=== PATIENT | male | born 1985 | race African-American/Black ===

== ENCOUNTER 2020-11-27 16:21 | Inpatient (IN) | payer OTHER, SELFPAY ==
[2020-11-27 16:45] VITALS: BP 137/88; PULSE 120; RESP 32; TEMP 38.3; O2SAT 92; BMI 27.3
--- NOTE | 2020-11-27 18:01 | XRR_ITS ---
PROCEDURE INFORMATION: Exam: XR Chest Exam date and time: 11/27/2020 6:01 PM Age: 35 years old Clinical indication: Dyspnea; Additional info: Tachypnea, covid TECHNIQUE: Imaging protocol: XR of the chest. Views: 1 view. COMPARISON: No relevant prior studies available. FINDINGS: Lungs: Patchy scattered peripheral airspace opacities with irregular margins bilaterally. Decreased lung volumes. Prominent pulmonary interstitial changes. Pleural spaces: Unremarkable. No pleural effusion. No pneumothorax. Heart/Mediastinum: Unremarkable. No cardiomegaly. Bones/joints: Unremarkable. XR/XR chest 1V portable [id number] IMPRESSION: Patchy nonspecific airspace disease in both lungs, but the features are consistent with COVID-19 pneumonia.
--- NOTE | 2020-11-27 18:38 | W.ED.COVID ---
Documented by User: MIRA Garcia 11/27/20 20:26 HPI - COVID General: Chief Complaint: COVID symptoms Stated Complaint: Sob, Low 02, covid + Time Seen by Provider: 11/27/20 18:20 Triage information: Has fever, cough or shortness of breath. No known COVID + exposure last 14 days History of Present Illness: HPI Narrative: Patient is been ill since Sunday. Patient reports shortness of breath starting on Sunday. Patient was tested at [facility] on and was diagnosed with COVID-19. Patient comes in as an tachypneic, appears in mild to moderate distress. Patient appears in no pain. Patient reports occasional episodes of nausea and vomiting and diarrhea and notes blood in it. Skin is warm and dry. Patient reports poor oral intake. MD complaint: known COVID positive COVID 19 common symptoms: positive dyspnea, nausea, vomiting and diarrhea COVID Results: No Data to Display Review of Systems General: Reports: 10 or more systems reviewed and unremarkable except in HPI and below Resp: Reports: dyspnea GI: Reports: abdominal pain, nausea, vomiting and diarrhea Physical Exam Const: COMMON NORMALS: no acute distress and patient oriented x3 GENERAL APPEARANCE: cooperative HENMT: COMMON NORMALS: normocephalic and Normal external nose present HEAD & SCALP: normal to inspection and normocephalic NOSE: Normal external nose present MOUTH: Normal oral and palatal mucosa present Eye: GENERAL EYE: appearance normal, both eyes and all related structures Neck/C-Spine: COMMON NORMALS: full ROM Lymph: LYMPHATIC: no lymphadenopathy noted Chest: COMMONS NORMALS: normal inspection of the chest Resp: EFFORT & INSPECTION: Yes able to speak in complete sentences and Yes tachypneic AUSCULTATION: diminished lung sounds Cardio: COMMON NORMALS: regular rate and regular rhythm RATE: regular rate RHYTHM: regular rhythm GI: COMMON NORMALS: non-tender : COMMON NORMALS: Yes no CVA tenderness BLADDER/KIDNEY EXAM: Yes no CVA tenderness Back/Pelvis: COMMON NORMALS: no CVA tenderness and thoracic and lumbar spine normal to inspection Extremity: COMMON NORMALS: normal to inspection Neuro: COMMON NORMALS: patient oriented x3 and moves all extremities Psych: COMMON NORMALS: mental status grossly normal and cooperative Skin: COMMON NORMALS: no rashes or lesions noted GENERAL SKIN EXAM: no rashes or lesions noted Course ED course: 2009, reviewed x-ray with Dr. Gomez, he feels the patient due to his significant hypoxia needs to be admitted to the hospital for further treatment and evaluation. I reviewed this with patient who agreed to plan. Patient is pulse ox she had has improved since being placed on 4 L nasal cannula, the patient remains tachypneic. Vital Signs: Vital signs: Vital Signs Temperature 101.0 F H 11/27/20 16:45 Pulse Rate 114 H 11/27/20 19:45 Respiratory Rate 22 H 11/27/20 19:45 Blood Pressure 137/88 11/27/20 16:45 Pulse Oximetry 100 11/27/20 19:45 MDM - COVID MDM Narrative: Medical decision making narrative: Patient comes in today with increasing shortness of breath. Patient was unable to catch his breath anymore. Patient reports some decreased appetite and occasional nausea vomiting and diarrhea. Patient notes that there is some streaking of blood in both his vomit and diarrhea. On exam abdomen soft nontender. Bowel sounds are present. Lungs are decreased throughout. Patient is tachypneic. Pulses 120. Temperature is 101. On my exam patient's oxygen saturation was 84% on room air. Patient appeared in mild to moderate distress. Differential diagnosis includes not limited to pneumonia, COVID-19, PE. D-dimer was normal. Chest x-ray noted significant pneumonia throughout all taveras. PO2 on ABG was 60's on 40% oxygen. Reviewed this with Dr. Gomez, attending ER physician, and he felt the patient would need admission due to his persistent and worsening symptoms over the last 4 days. Patient was consulted and agreed to plan. Patient needs admission for intensive treatment of his pneumonia with antivirals, oxygen therapy, and monitoring for respiratory failure. Lab Data: Labs: Lab Results 11/27/20 11/27/20 11/27/20 Range/Units 19:50 19:50 19:50 WBC 3.6 L (4.0-10.0) 10^3/ uL RBC 5.39 H (4.1-5.3) 10^6/u L Hgb 15.7 (11.7-16.6) g/dL Hct 46.2 (42.0-52.0) % MCV 85.7 (80-94) fL MCH 29.1 (28.0-34.0) pg MCHC 34.0 (30.0-36.0) g/dL RDW 11.8 L (12.1-15.1) % Plt Count 197 (130-400) 10^3/c mm MPV 9.6 (7.4-10.4) fL Neut % (Auto) 70.4 % Lymph % (Auto) 20.2 % [place] % (Auto) 8.0 % Eos % (Auto) 0.0 % Baso % (Auto) 0.0 % Neut # (Auto) 2.54 (1.8-7.7) 10^3/u L Lymph # (Auto) 0.7 L (0.8-4.8) 10^3/u L [place] # (Auto) 0.3 (0.2-0.9) 10^3/u L Eos # (Auto) 0.0 (0.0-0.8) 10^3/u L Baso # (Auto) 0.0 (0.0-0.1) 10^3/u L Nucleated RBC % (a uto) 0 % Nucleated RBCs # 0.0 /100WBC PT 13.30 (12.1-14.9) SECO NDS INR 0.98 (0.8-1.2) APTT 34.8 (23.9-36.7) SECO NDS D-Dimer 0.39 (0-0.59) ug/mIFE U Specimen Type Sample Site ABG pH (7.35-7.45) ABG pCO2 (35-45) mmHg ABG pO2 (80.0-100.0) mmH g ABG HCO3 (22-26) mmol/L ABG Base Excess (-2.0-2.0) mmol/ L Arvind Test Hematocrit (42-52) % O2 Delivery Device O2 Liters/Min % Shell Core And Molding Supervisor ID Sodium 137 (136-145) mmol/L Potassium 3.8 (3.5-5.1) mmol/L Chloride 100 (98-107) mmol/L Carbon Dioxide 25 (22-29) mmol/L Anion Gap 15.8 (5-19) BUN 6 (6-20) mg/dL Creatinine 0.8 (0.7-1.2) mg/dL GFR Calculation 133.9 H (90-130) mL/min Glucose 98 (65-115) mg/dL Calculated Osmolal ity 282 L (285-295) mOsm/k g Lactic Acid (0.5-2.2) mmol/L Calcium 7.9 L (8.5-10.5) mg/dL Total Bilirubin 0.4 (0.15-1.2) mg/dL AST 73 H (0-40) U/L ALT 112 H (0-41) U/L Alkaline Phosphata se 36 L (40-130) IU/L Creatine Kinase 1469 H* (39-308) U/L Troponin T Gen 5 n g/L (0-15) ng/L Troponin T Baselin e (0-15) ng/L C-Reactive Protein 68.2 H (0.0-4.9) mg/L Total Protein 6.9 (6.6-8.7) g/dL Albumin 3.8 (3.5-5.2) g/dL Globulin 3.1 (1.3-4.6) g/dL Procalcitonin 0.17 (0-0.5) ng/mL 11/27/20 11/27/20 11/27/20 Range/Units 19:50 19:50 19:50 WBC (4.0-10.0) 10^3/ uL RBC (4.1-5.3) 10^6/u L Hgb (11.7-16.6) g/dL Hct (42.0-52.0) % MCV (80-94) fL MCH (28.0-34.0) pg MCHC (30.0-36.0) g/dL RDW (12.1-15.1) % Plt Count (130-400) 10^3/c mm MPV (7.4-10.4) fL Neut % (Auto) % Lymph % (Auto) % [place] % (Auto) % Eos % (Auto) % Baso % (Auto) % Neut # (Auto) (1.8-7.7) 10^3/u L Lymph # (Auto) (0.8-4.8) 10^3/u L [place] # (Auto) (0.2-0.9) 10^3/u L Eos # (Auto) (0.0-0.8) 10^3/u L Baso # (Auto) (0.0-0.1) 10^3/u L Nucleated RBC % (a uto) % Nucleated RBCs # /100WBC PT (12.1-14.9) SECO NDS INR (0.8-1.2) APTT (23.9-36.7) SECO NDS D-Dimer (0-0.59) ug/mIFE U Specimen Type Arterial Sample Site Brachial, left ABG pH 7.45 (7.35-7.45) ABG pCO2 33.8 L (35-45) mmHg ABG pO2 67.6 L (80.0-100.0) mmH g ABG HCO3 23.2 (22-26) mmol/L ABG Base Excess -0.2 (-2.0-2.0) mmol/ L Arvind Test Pos Hematocrit 49.5 (42-52) % O2 Delivery Device Nc O2 Liters/Min 4.0 % Shell Core And Molding Supervisor ID [email or web address] Sodium (136-145) mmol/L Potassium (3.5-5.1) mmol/L Chloride (98-107) mmol/L Carbon Dioxide (22-29) mmol/L Anion Gap (5-19) BUN (6-20) mg/dL Creatinine (0.7-1.2) mg/dL GFR Calculation (90-130) mL/min Glucose (65-115) mg/dL Calculated Osmolal ity (285-295) mOsm/k g Lactic Acid 1.1 (0.5-2.2) mmol/L Calcium (8.5-10.5) mg/dL Total Bilirubin (0.15-1.2) mg/dL AST (0-40) U/L ALT (0-41) U/L Alkaline Phosphata se (40-130) IU/L Creatine Kinase (39-308) U/L Troponin T Gen 5 n g/L 7 (0-15) ng/L Troponin T Baselin e (0-15) ng/L C-Reactive Protein (0.0-4.9) mg/L Total Protein (6.6-8.7) g/dL Albumin (3.5-5.2) g/dL Globulin (1.3-4.6) g/dL Procalcitonin (0-0.5) ng/mL 07/31/21 Range/Units 22:24 WBC (4.0-10.0) 10^3/ uL RBC (4.1-5.3) 10^6/u L Hgb (11.7-16.6) g/dL Hct (42.0-52.0) % MCV (80-94) fL MCH (28.0-34.0) pg MCHC (30.0-36.0) g/dL RDW (12.1-15.1) % Plt Count (130-400) 10^3/c mm MPV (7.4-10.4) fL Neut % (Auto) % Lymph % (Auto) % [place] % (Auto) % Eos % (Auto) % Baso % (Auto) % Neut # (Auto) (1.8-7.7) 10^3/u L Lymph # (Auto) (0.8-4.8) 10^3/u L [place] # (Auto) (0.2-0.9) 10^3/u L Eos # (Auto) (0.0-0.8) 10^3/u L Baso # (Auto) (0.0-0.1) 10^3/u L Nucleated RBC % (a uto) % Nucleated RBCs # /100WBC PT (12.1-14.9) SECO NDS INR (0.8-1.2) APTT (23.9-36.7) SECO NDS D-Dimer (0-0.59) ug/mIFE U Specimen Type Sample Site ABG pH (7.35-7.45) ABG pCO2 (35-45) mmHg ABG pO2 (80.0-100.0) mmH g ABG HCO3 (22-26) mmol/L ABG Base Excess (-2.0-2.0) mmol/ L Arvind Test Hematocrit (42-52) % O2 Delivery Device O2 Liters/Min % Shell Core And Molding Supervisor ID Sodium (136-145) mmol/L Potassium (3.5-5.1) mmol/L Chloride (98-107) mmol/L Carbon Dioxide (22-29) mmol/L Anion Gap (5-19) BUN (6-20) mg/dL Creatinine (0.7-1.2) mg/dL GFR Calculation (90-130) mL/min Glucose (65-115) mg/dL Calculated Osmolal ity (285-295) mOsm/k g Lactic Acid (0.5-2.2) mmol/L Calcium (8.5-10.5) mg/dL Total Bilirubin (0.15-1.2) mg/dL AST (0-40) U/L ALT (0-41) U/L Alkaline Phosphata se (40-130) IU/L Creatine Kinase (39-308) U/L Troponin T Gen 5 n g/L (0-15) ng/L Troponin T Baselin e 7 (0-15) ng/L C-Reactive Protein (0.0-4.9) mg/L Total Protein (6.6-8.7) g/dL Albumin (3.5-5.2) g/dL Globulin (1.3-4.6) g/dL Procalcitonin (0-0.5) ng/mL COVID Results: No Data to Display Discharge Plan Discharge Patient Disposition: Admitted As Inpatient Admit Provider: Felicita Franco Clinical Impression: Acute respiratory failure with hypoxia, Pneumonia due to COVID-19 virus Condition: Stable Coding Level of Care Code ED Sprinkler Fitter Apprentice for Chg Fwd Exam Comprehensive Documented by User: Mike Gomez DO 11/28/20 00:14 HPI - COVID General: Chief Complaint: COVID symptoms Stated Complaint: Sob, Low 02, covid + Time Seen by Provider: 11/27/20 18:20 COVID Results: No Data to Display Course Consultations: Consultation #1: sheridan Vital Signs: Vital signs: Vital Signs Temperature 101.0 F H 11/27/20 16:45 Pulse Rate 114 H 11/27/20 19:45 Respiratory Rate 22 H 11/27/20 19:45 Blood Pressure 137/88 11/27/20 16:45 Pulse Oximetry 100 11/27/20 19:45 MDM - COVID MDM Narrative: Medical decision making narrative: 35-year-old male presents short of breath. He is positive for COVID-19. He has bilateral pneumonitis on chest x-ray that is significant. He is oxygen dependent on 4 L. His pneumonitic load is significant on chest x-ray. He will be admitted for antivirals and dexamethasone and oxygen support. He was originally seen by MIRA Bennett. I agree with his history, evaluation, and treatment. Lab Data: Labs: Lab Results 11/27/20 11/27/20 11/27/20 Range/Units 19:50 19:50 19:50 WBC 3.6 L (4.0-10.0) 10^3/ uL RBC 5.39 H (4.1-5.3) 10^6/u L Hgb 15.7 (11.7-16.6) g/dL Hct 46.2 (42.0-52.0) % MCV 85.7 (80-94) fL MCH 29.1 (28.0-34.0) pg MCHC 34.0 (30.0-36.0) g/dL RDW 11.8 L (12.1-15.1) % Plt Count 197 (130-400) 10^3/c mm MPV 9.6 (7.4-10.4) fL Neut % (Auto) 70.4 % Lymph % (Auto) 20.2 % [place] % (Auto) 8.0 % Eos % (Auto) 0.0 % Baso % (Auto) 0.0 % Neut # (Auto) 2.54 (1.8-7.7) 10^3/u L Lymph # (Auto) 0.7 L (0.8-4.8) 10^3/u L [place] # (Auto) 0.3 (0.2-0.9) 10^3/u L Eos # (Auto) 0.0 (0.0-0.8) 10^3/u L Baso # (Auto) 0.0 (0.0-0.1) 10^3/u L Nucleated RBC % (a uto) 0 % Nucleated RBCs # 0.0 /100WBC PT 13.30 (12.1-14.9) SECO NDS INR 0.98 (0.8-1.2) APTT 34.8 (23.9-36.7) SECO NDS D-Dimer 0.39 (0-0.59) ug/mIFE U Specimen Type Sample Site ABG pH (7.35-7.45) ABG pCO2 (35-45) mmHg ABG pO2 (80.0-100.0) mmH g ABG HCO3 (22-26) mmol/L ABG Base Excess (-2.0-2.0) mmol/ L Arvind Test Hematocrit (42-52) % O2 Delivery Device O2 Liters/Min % Shell Core And Molding Supervisor ID Sodium 137 (136-145) mmol/L Potassium 3.8 (3.5-5.1) mmol/L Chloride 100 (98-107) mmol/L Carbon Dioxide 25 (22-29) mmol/L Anion Gap 15.8 (5-19) BUN 6 (6-20) mg/dL Creatinine 0.8 (0.7-1.2) mg/dL GFR Calculation 133.9 H (90-130) mL/min Glucose 98 (65-115) mg/dL Calculated Osmolal ity 282 L (285-295) mOsm/k g Lactic Acid (0.5-2.2) mmol/L Calcium 7.9 L (8.5-10.5) mg/dL Total Bilirubin 0.4 (0.15-1.2) mg/dL AST 73 H (0-40) U/L ALT 112 H (0-41) U/L Alkaline Phosphata se 36 L (40-130) IU/L Creatine Kinase 1469 H* (39-308) U/L Troponin T Gen 5 n g/L (0-15) ng/L Troponin T Baselin e (0-15) ng/L C-Reactive Protein 68.2 H (0.0-4.9) mg/L Total Protein 6.9 (6.6-8.7) g/dL Albumin 3.8 (3.5-5.2) g/dL Globulin 3.1 (1.3-4.6) g/dL Procalcitonin 0.17 (0-0.5) ng/mL 11/27/20 11/27/20 11/27/20 Range/Units 19:50 19:50 19:50 WBC (4.0-10.0) 10^3/ uL RBC (4.1-5.3) 10^6/u L Hgb (11.7-16.6) g/dL Hct (42.0-52.0) % MCV (80-94) fL MCH (28.0-34.0) pg MCHC (30.0-36.0) g/dL RDW (12.1-15.1) % Plt Count (130-400) 10^3/c mm MPV (7.4-10.4) fL Neut % (Auto) % Lymph % (Auto) % [place] % (Auto) % Eos % (Auto) % Baso % (Auto) % Neut # (Auto) (1.8-7.7) 10^3/u L Lymph # (Auto) (0.8-4.8) 10^3/u L [place] # (Auto) (0.2-0.9) 10^3/u L Eos # (Auto) (0.0-0.8) 10^3/u L Baso # (Auto) (0.0-0.1) 10^3/u L Nucleated RBC % (a uto) % Nucleated RBCs # /100WBC PT (12.1-14.9) SECO NDS INR (0.8-1.2) APTT (23.9-36.7) SECO NDS D-Dimer (0-0.59) ug/mIFE U Specimen Type Arterial Sample Site Brachial, left ABG pH 7.45 (7.35-7.45) ABG pCO2 33.8 L (35-45) mmHg ABG pO2 67.6 L (80.0-100.0) mmH g ABG HCO3 23.2 (22-26) mmol/L ABG Base Excess -0.2 (-2.0-2.0) mmol/ L Arvind Test Pos Hematocrit 49.5 (42-52) % O2 Delivery Device Nc O2 Liters/Min 4.0 % Shell Core And Molding Supervisor ID [email or web address] Sodium (136-145) mmol/L Potassium (3.5-5.1) mmol/L Chloride (98-107) mmol/L Carbon Dioxide (22-29) mmol/L Anion Gap (5-19) BUN (6-20) mg/dL Creatinine (0.7-1.2) mg/dL GFR Calculation (90-130) mL/min Glucose (65-115) mg/dL Calculated Osmolal ity (285-295) mOsm/k g Lactic Acid 1.1 (0.5-2.2) mmol/L Calcium (8.5-10.5) mg/dL Total Bilirubin (0.15-1.2) mg/dL AST (0-40) U/L ALT (0-41) U/L Alkaline Phosphata se (40-130) IU/L Creatine Kinase (39-308) U/L Troponin T Gen 5 n g/L 7 (0-15) ng/L Troponin T Baselin e (0-15) ng/L C-Reactive Protein (0.0-4.9) mg/L Total Protein (6.6-8.7) g/dL Albumin (3.5-5.2) g/dL Globulin (1.3-4.6) g/dL Procalcitonin (0-0.5) ng/mL 11/27/20 Range/Units 22:24 WBC (4.0-10.0) 10^3/ uL RBC (4.1-5.3) 10^6/u L Hgb (11.7-16.6) g/dL Hct (42.0-52.0) % MCV (80-94) fL MCH (28.0-34.0) pg MCHC (30.0-36.0) g/dL RDW (12.1-15.1) % Plt Count (130-400) 10^3/c mm MPV (7.4-10.4) fL Neut % (Auto) % Lymph % (Auto) % [place] % (Auto) % Eos % (Auto) % Baso % (Auto) % Neut # (Auto) (1.8-7.7) 10^3/u L Lymph # (Auto) (0.8-4.8) 10^3/u L [place] # (Auto) (0.2-0.9) 10^3/u L Eos # (Auto) (0.0-0.8) 10^3/u L Baso # (Auto) (0.0-0.1) 10^3/u L Nucleated RBC % (a uto) % Nucleated RBCs # /100WBC PT (12.1-14.9) SECO NDS INR (0.8-1.2) APTT (23.9-36.7) SECO NDS D-Dimer (0-0.59) ug/mIFE U Specimen Type Sample Site ABG pH (7.35-7.45) ABG pCO2 (35-45) mmHg ABG pO2 (80.0-100.0) mmH g ABG HCO3 (22-26) mmol/L ABG Base Excess (-2.0-2.0) mmol/ L Arvind Test Hematocrit (42-52) % O2 Delivery Device O2 Liters/Min % Shell Core And Molding Supervisor ID Sodium (136-145) mmol/L Potassium (3.5-5.1) mmol/L Chloride (98-107) mmol/L Carbon Dioxide (22-29) mmol/L Anion Gap (5-19) BUN (6-20) mg/dL Creatinine (0.7-1.2) mg/dL GFR Calculation (90-130) mL/min Glucose (65-115) mg/dL Calculated Osmolal ity (285-295) mOsm/k g Lactic Acid (0.5-2.2) mmol/L Calcium (8.5-10.5) mg/dL Total Bilirubin (0.15-1.2) mg/dL AST (0-40) U/L ALT (0-41) U/L Alkaline Phosphata se (40-130) IU/L Creatine Kinase (39-308) U/L Troponin T Gen 5 n g/L (0-15) ng/L Troponin T Baselin e 7 (0-15) ng/L C-Reactive Protein (0.0-4.9) mg/L Total Protein (6.6-8.7) g/dL Albumin (3.5-5.2) g/dL Globulin (1.3-4.6) g/dL Procalcitonin (0-0.5) ng/mL COVID Results: No Data to Display Discharge Plan Discharge Patient Disposition: Admitted As Inpatient Admit Provider: Felicita Franco Clinical Impression: Acute respiratory failure with hypoxia, Pneumonia due to COVID-19 virus Condition: Stable Coding Level of Care Code ED Sprinkler Fitter Apprentice for g Fwd Exam Comprehensive
[2020-11-27 18:50] VITALS: O2SAT 96
[2020-11-27 19:45] VITALS: PULSE 114; RESP 22; O2SAT 100
[2020-11-27] MEDS: albuterol 8 gm MDI 2 PUFF INHALATION (19:45)
[2020-11-27 20:02] LABS: Hematocrit 46.2 % (42.0-52.0); Hemoglobin 15.7 g/dL (11.7-16.6); Lymphocytes # 0.7 10^3/uL (0.8-4.8); Lymphocytes % 20.2 %; Mean Corpuscular Hemoglobin 29.1 pg (28.0-34.0); Mean Corpuscular Volume 85.7 fL (80-94); Mean Platelet Volume 9.6 fL (7.4-10.4); Monocytes # 0.3 10^3/uL (0.2-0.9); Neutrophils # 2.54 10^3/uL (1.8-7.7); Neutrophils % 70.4 %; Nucleated Red Blood Cells % 0 %; Platelet Count 197 10^3/cmm (130-400); Red Blood Count 5.39 10^6/uL (4.1-5.3); Red Cell Distribution Width 11.8 % (12.1-15.1); White Blood Count 3.6 10^3/uL (4.0-10.0)
[2020-11-27 20:09] LABS: ABG PCO2 33.8 mmHg (35-45); ABG PH Result 7.45 (7.35-7.45); Arterial Blood Gas Hematocrit 49.5 % (42-52); Base Excess ABG -0.2 mmol/L (-2.0-2.0); Blood Gas Allen Test Pos; Blood Gas Sample Site Brachial, left; Blood Gas Sample Type Arterial; HCO3 ABG 23.2 mmol/L (22-26); Oxygen Device NC; PO2 ABG 67.6 mmHg (80.0-100.0)
[2020-11-27 20:17] LABS: INR 0.98 (0.8-1.2)
[2020-11-27 20:18] LABS: Partial Thromboplastin Time 34.8 SECONDS (23.9-36.7)
[2020-11-27 20:20] LABS: D Dimer 0.39 ug/mIFEU (0-0.59)
[2020-11-27 20:23] LABS: Alanine Aminotransferase 112 U/L (0-41); Albumin Level 3.8 g/dL (3.5-5.2); Alkaline Phosphatase 36 IU/L (40-130); Aspartate Amino Transferase 73 U/L (0-40); Blood Urea Nitrogen 6 mg/dL (6-20); C Reactive Protein 68.2 mg/L (0.0-4.9); Calcium 7.9 mg/dL (8.5-10.5); Carbon Dioxide 25 mmol/L (22-29); Chloride 100 mmol/L (98-107); Globulin 3.1 g/dL (1.3-4.6); Glomerular Filtration Rate 133.9 mL/min (90-130); Glucose 98 mg/dL (65-115); Osmolality Calculated 282 mOsm/kg (285-295); Sodium 137 mmol/L (136-145); Total Bilirubin 0.4 mg/dL (0.15-1.2); Total Protein 6.9 g/dL (6.6-8.7)
[2020-11-27 20:24] LABS: Lactic Sepsis W/Reflex 1.1 mmol/L (0.5-2.2)
[2020-11-27 20:25] LABS: Anion Gap 15.8 (5-19); Potassium 3.8 mmol/L (3.5-5.1)
[2020-11-27 20:28] LABS: Creatine Phosphokinase 1469 U/L (39-308)
[2020-11-27 20:30] LABS: Procalcitonin 0.17 ng/mL (0-0.5)
[2020-11-27 20:33] LABS: Troponin T (5th) Once 7 ng/L (0-15)
[2020-11-27] MEDS: sodium chloride 0.9% 1,000 ML 999 ML IV ×2 (20:34→23:12)
[2020-11-27] MEDS: dexamethasone 10 mg/mL INJ IVP (20:39)
[2020-11-27 21:02] LABS: Slide Review Slide Review Perform
[2020-11-27 22:51] LABS: Troponin(5th) Baseline 7 ng/L (0-15)
[2020-11-27] MEDS: ondansetron 2 mg/ML SDV 2 mL 4 MG IVP (23:11)
[2020-11-27] MEDS: morphine 4 mg/mL SDV 1 mL IVP (23:11)
[2020-11-28] VITALS (15 sets, daily range): BP systolic 116–149; BP diastolic 78–103; PULSE 86–115; RESP 14–56; TEMP 36.4–37.2; O2SAT 88–97
--- NOTE | 2020-11-28 00:02 | PM.HP ---
Providers/Chief Complaint Admitting Physician: Felicita Franco MD Chief Complaint: Sob, Low 02, covid + History of Present Illness Hay Villanueva is a 35 year old male with no significant PMH unvaccinated for COVID 19 p/w fever, chills, nausea, vomiting and diarrhea over the past 5 days. He tested positive for COVID 19 at [facility] 3 days ago. Noted to be tachypneic, 02 sat 85% on RA improved ith 4lpm 02. Patient visibly tachypneic. CXR with B/L infiltrates. D dimer negative Review of Systems General: Reports: 10 or more systems reviewed and unremarkable except in HPI and below Const: Denies: fever(s), chills or body aches Eyes: Denies: change in vision, blurry vision or photophobia ENMT: Reports: hoarseness; Denies: throat pain, enlarged tonsils, odynophagia or nasal congestion Card: Denies: chest pain, palpitations, irregular heart rhythm, edema, swelling of feet/ankles, lightheadedness, pre-syncope, dyspnea on exertion or orthopnea Resp: Denies: dyspnea, productive cough, non-productive cough, wheezing, stridor, pain on inspiration, change in phlegm color, hemoptysis or chest congestion GI: Denies: abdominal pain, nausea, vomiting, hematemesis, coffee ground emesis, dysphagia, heartburn, diarrhea, constipation, GI cramping, change in stool character, hematochezia or melena : Denies: flank pain, dysuria, urinary frequency, urinary urgency, urinary hesitancy or hematuria Musc: Denies: neck pain, back pain, extremity pain, joint swelling, joint warmth or deformity Neuro: Denies: headache(s), numbness in extremities, weakness in extremities, sensory changes, difficulty walking, frequent falls, dizziness, vertigo, behavioral changes, Slurred speech present or seizure-like activity Psych: Denies: anxiety, depression, suicidal ideation or homicidal ideation Endo: Denies: polyuria, polydipsia, tired all the time, cold intolerance or hot flashes Evangelist/Lymph: Denies: easy bruising or easy bleeding Medications/Allergies Allergies Allergy/AdvReac Type Severity Reaction Status Date / Time No Known Allergies Allergy Verified 11/27/20 16:44 Vitals/I&O/Wt Last Vital Signs Temp 101.0 F H 11/27/20 16:45 Pulse 114 H 11/27/20 19:45 Resp 22 H 11/27/20 19:45 BP 137/88 11/27/20 16:45 Pulse Ox 100 11/27/20 19:45 11/27/20 11/27/20 11/28/20 14:59 22:59 06:59 Intake Total 1000 / 1000 Balance 1000 / 1000 Weight last 48 hrs Weight 81.647 kg Physical Exam Narrative: EXAM NARRATIVE: General: No acute distress, AO x3, tachypneic HEENT: PERRLA, pupils bilaterally equal and reactive, pallors not present Chest: Normal vesicular breath sounds, no added sounds, equal good air entry bilaterally CVS: S1-S2 regular, no murmurs, no tachycardia, no gallops, no rubs Abdomen: Soft, nontender, no organomegaly, bowel sounds present Neuro: No focal deficits, no facial deformity, AO x3, power 5/5 in all limbs Extremities: no clubbing edema or cyanosis Data : 11/27/20 19:50 11/27/20 19:50 A&P Assessment and plan (1) Acute respiratory failure with hypoxia: Remdisivir 200mg x 1 followed by 100mg iv daily dexamethasone 6mg IVP q24h duoneb and budesonide inhlalation flutter valve, spirometry Tessalon pears empric CTX and azithromycin D dimer negative supplemental 02 to keep sat >92% Status: Acute (2) Pneumonia due to COVID-19 virus: Status: Acute Attestations Medical Necessity Statement*: >2midnight anticipated for management of covid 19 pneumonia Coding Level of Care Code Acute Controller Instructor for [facility] Fwd Diagnoses Acute respiratory failure with hypoxia J96.01 Pneumonia due to COVID-19 virus U07.1; J12.82
[2020-11-28] MEDS: remdesivir 200 MG in sodium chloride 0.9% (100 ml) 100 ML 100 MG IV (00:34)
--- NOTE | 2020-11-28 04:13 | XRR_ITS ---
PROCEDURE INFORMATION: Exam: XR Abdomen Exam date and time: 11/28/2020 4:13 AM Age: 35 years old Clinical indication: Abdominal pain; Generalized; Patient HX: Covid; Additional info: Evalute for sbo TECHNIQUE: Imaging protocol: XR of the abdomen. Views: Frontal supine view of the abdomen. 1 View. Total images: 1 COMPARISON: CR (CHEST, ) 11/27/2020 6:24 PM FINDINGS: Gastrointestinal tract: Bowel gas pattern is nondistended and nonobstructive. Bones/joints: Unremarkable. Other findings: Mild stool burden. XR/XR abdomen 1V* [id number] IMPRESSION: 1. Normal bowel gas pattern 2. Mild stool burden.
--- NOTE | 2020-11-28 04:15 | ECG_ITS ---
[facility] Test Date: 2020-11-28 Pat Name: Hay Villanueva Department: Room: 209 Gender: Male Medical Educator: : 1985 Requested By: Mike Owens Order Number: [id number] Reading MD: BUSHRA CHISHOLM Measurements Intervals [place] Rate: 88 P: 35 WV: 154 QRS: 3 QRSD: 97 T: 3 QT: 346 QTc: 420 Interpretive Statements SINUS RHYTHM NONSPECIFIC T-WAVE ABNORMALITY No previous ECG available for comparison Electronically Signed On 11-28-2020 20:14:09 CDT by BUSHRA CHISHOLM [email or web address]
[2020-11-28] MEDS: cefTRIAXone 1,000 MG in sodium chloride 0.9% (plus) 50 ML 100 MG IV (05:13)
[2020-11-28] MEDS: dexamethasone 4 mg/mL INJ 6 MG IVP (05:40)
[2020-11-28] MEDS: azithromycin 500 MG in sodium chloride 0.9% 250 ML 250 MG IV (05:51)
[2020-11-28] MEDS: pantoprazole DR 40 mg Tablet PO (08:50)
[2020-11-28] MEDS: morphine 4 mg/mL SDV 1 mL 2 MG IVP ×2 (08:50→21:32)
[2020-11-28] MEDS: benzonatate 100 mg Capsule PO ×3 (08:50→21:34)
--- NOTE | 2020-11-28 09:26 | PC.PHAR ---
pt states he takes no rx medications-pt states he has only been taking tylenol prn
--- NOTE | 2020-11-28 10:09 | PM.PN ---
Subjective Subjective: Interval history: Patient was seen and examined this morning, overnight H&P reviewed. Temperature 101 noted, patient stating that his symptoms started on Sunday with shortness of breath that got worse over the weekend At the time of my evaluation he was saturating well on 4 L nasal cannula 90 to 93% however using his abdominal muscles complaining of pain on coughing in subcostal margins I asked his nurse to give him morphine his respiratory rate was in 30s Vitals/I&O/Wt Last Vital Signs Temp 98.2 F 11/28/20 08:00 Pulse 88 11/28/20 08:00 Resp 23 H 11/28/20 08:50 BP 149/103 11/28/20 08:00 Pulse Ox 89 L 11/28/20 08:00 11/27/20 11/28/20 11/28/20 22:59 06:59 14:59 Intake Total 1000 / 1000 1150 / 2150 250 / 250 Balance 1000 / 1000 1150 / 2150 250 / 250 Weight last 48 hrs Weight 81.647 kg Physical Exam Narrative: EXAM NARRATIVE: Young -Ang[place] male who was saturating 92% on 4 L nasal cannula Tachypneic using abdominal muscles Awake alert oriented x3 GCS 15 Looks anxious S1, S2 sinus rhythm Clinically euvolemic Abdomen soft No neurological deficit GCS 15 No joint swelling or cellulitis Bilateral breath sounds without active crackles or rhonchi Data : 11/27/20 19:50 11/27/20 19:50 A&P Assessment and plan (1) Acute respiratory failure with hypoxia: Status: Acute (2) Pneumonia due to COVID-19 virus: Status: Acute (3) Sepsis: Status: Acute Additional A&P Information Sepsis secondary to COVID-19 pneumonia Criteria met with fever, tachycardia, tachypnea, leukopenia, Currently on remdesivir and Decadron does not meet criteria for interleukin-6 inhibitor, Patient is saturating well on 4 L nasal cannula however he is tachypneic for his anxiety I would give him morphine today and see his response he is using abdominal muscles and experiencing pleuritic chest pain as well watch for any signs of myocarditis related with COVID-19, will request and troponin Encourage proning and incentive spirometry Procalcitonin unremarkable I have discontinued antibiotics Regular diet Full code DVT prophylaxis we will add Lovenox Attestations Medical Necessity Statement*: Continue medical management for hypoxia related to COVID-19 infection Time Spent in Patient Care: less than 15 minutes Coding Level of Care Code Acute Outpatient Scheduler for [facility] Fwd Diagnoses Acute respiratory failure with hypoxia J96.01 Pneumonia due to COVID-19 virus U07.1; J12.82 Sepsis A41.9
[2020-11-28] MEDS: enoxaparin 40 mg/0.4 mL Syringe SUBCUT (13:57)
[2020-11-28] MEDS: ipratropium-albuterol 3 mL Neb INHALATION ×2 (15:27→21:26)
[2020-11-28 16:26] LABS: Glucose Point of Care 189 mg/dL (70-110)
[2020-11-28] MEDS: remdesivir 100 MG in sodium chloride 0.9% (100 ml) 100 ML IV (17:42)
--- NOTE | 2020-11-28 18:21 | PC.NURSE ---
spoke with Dr Mccrary about concerns of patient drop in o2 saturation and increase respirations patient requesting more cough pills patient referring to rj mccrary with instructions to give morphine and increase does to PRN q4h of tessalon
[2020-11-28] MEDS: budesonide 0.5 mg/2 mL Neb INHALATION (21:26)
[2020-11-29] VITALS (14 sets, daily range): BP systolic 118–130; BP diastolic 80–87; PULSE 85–117; RESP 20–36; TEMP 36.5–37; O2SAT 90–97
[2020-11-29] MEDS: ipratropium-albuterol 3 mL Neb INHALATION ×4 (03:05→19:59)
[2020-11-29] MEDS: benzonatate 100 mg Capsule PO ×4 (03:19→18:00)
[2020-11-29] MEDS: dexamethasone 4 mg/mL INJ 6 MG IVP (03:42)
[2020-11-29 06:15] LABS: Basophils % 0.1 %; Hematocrit 43.6 % (42.0-52.0); Hemoglobin 14.8 g/dL (11.7-16.6); Lymphocytes # 0.7 10^3/uL (0.8-4.8); Lymphocytes % 8.5 %; Mean Corpuscular HGB Conc 33.9 g/dL (30.0-36.0); Mean Corpuscular Volume 85.3 fL (80-94); Mean Platelet Volume 9.6 fL (7.4-10.4); Monocytes # 0.6 10^3/uL (0.2-0.9); Monocytes % 7.7 %; Neutrophils % 82.8 %; Nucleated Red Blood Cells % 0 %; Platelet Count 274 10^3/cmm (130-400); Red Blood Count 5.11 10^6/uL (4.1-5.3); Red Cell Distribution Width 11.9 % (12.1-15.1); White Blood Count 7.6 10^3/uL (4.0-10.0)
[2020-11-29 06:52] LABS: Alanine Aminotransferase 97 U/L (0-41); Albumin Level 3.2 g/dL (3.5-5.2); Alkaline Phosphatase 32 IU/L (40-130); Anion Gap 14.7 (5-19); Aspartate Amino Transferase 59 U/L (0-40); Blood Urea Nitrogen 9 mg/dL (6-20); Calcium 8.1 mg/dL (8.5-10.5); Carbon Dioxide 23 mmol/L (22-29); Chloride 107 mmol/L (98-107); Globulin 3.6 g/dL (1.3-4.6); Glomerular Filtration Rate 186.6 mL/min (90-130); Glucose 147 mg/dL (65-115); Osmolality Calculated 293 mOsm/kg (285-295); Potassium 3.7 mmol/L (3.5-5.1); Sodium 141 mmol/L (136-145); Total Bilirubin 0.3 mg/dL (0.15-1.2); Total Protein 6.8 g/dL (6.6-8.7)
[2020-11-29 07:15] LABS: C Reactive Protein 25.1 mg/L (0.0-4.9); Lactate Dehydrogenase 412 U/L (135-225)
[2020-11-29 07:22] LABS: Procalcitonin 0.09 ng/mL (0-0.5)
[2020-11-29 07:27] LABS: Ferritin 1401 ng/mL (30-400)
[2020-11-29 07:35] LABS: Troponin T (5th) Once 6 ng/L (0-15)
[2020-11-29 07:49] LABS: HIV 1 & 2 Antibody Non-Reactive (Non-Reactiv); HIV 1 & 2 Antigen Non-Reactive (Non-Reactiv)
[2020-11-29] MEDS: pantoprazole DR 40 mg Tablet PO (08:09)
[2020-11-29 09:29] LABS: Glucose Point of Care 155 mg/dL (70-110)
[2020-11-29 09:29] LABS: Glucose Point of Care 157 mg/dL (70-110)
[2020-11-29 09:29] LABS: Glucose Point of Care 185 mg/dL (70-110)
[2020-11-29 09:29] LABS: Glucose Point of Care 146 mg/dL (70-110)
[2020-11-29] MEDS: budesonide 0.5 mg/2 mL Neb INHALATION ×2 (09:49→19:58)
[2020-11-29] MEDS: enoxaparin 40 mg/0.4 mL Syringe SUBCUT (11:13)
--- NOTE | 2020-11-29 12:35 | CT_ITS ---
WS: [id number] CTA OF THE CHEST WITH PULMONARY EMBOLISM PROTOCOL TECHNIQUE: High-resolution contrast enhanced CTA of the chest with coronal and sagittal reformatted i mages with pulmonary embolism protocol. MIP images are also reviewed. CLINICAL INFORMATION: SOB COMPARISON: None. DLP: 568.[address] scans at [facility] use at least one of these dose optimization techniques: automat ed exposure control; mA and/or kV adjustment per patient size (includes targeted exams where dose is matched to clinical indication); or iterative reconstruction. FINDINGS: Extensive diffuse bilateral groundglass infiltrates compatible with COVID 19 pneumonia. No focal cons olidation or pleural fluid. Cardiomegaly. Proximal main pulmonary arteries are normal. Segmental and subsegmental pulmonary arter ies appear normal. No evidence of pulmonary embolus. Normal caliber thoracic aorta. Small esophageal hiatal hernia. Adrenal glands are normal. CT/CT angio chest PE protcl [id number] IMPRESSION: 1. Diffuse bilateral hazy ground infiltrates compatible with COVID 19 pneumoni a. 2. Proximal main pulmonary arteries are normal. No evidence of pulmonary embol us. 3. Small esophageal hiatal hernia.
[2020-11-29] MEDS: iohexol 350 mg/mL 100 mL Btl IV (13:31)
[2020-11-29] MEDS: acetaminophen 325 mg Tablet 650 MG PO (16:24)
[2020-11-29] MEDS: remdesivir 100 MG in sodium chloride 0.9% (100 ml) 100 ML IV (18:00)
[2020-11-29] MEDS: guaiFENesin 100 mg/5 mL UDC 10 mL 200 MG PO ×2 (18:00→22:12)
--- NOTE | 2020-11-29 20:03 | P.PN_ITS ---
Subjective Subjective: Interval history: Patient was seen and examined this morning,continue to have worseing SOB as well as cough.Has been tachycardic and tachypenic. Deny any other complain. Has required 6-8 Ls oxygen via nc. His other Vitals and labs have been reviewed. Medications: Reviewed: Yes Vitals/I&O/Wt Last Vital Signs Temp 98.1 F 11/29/20 08:00 Pulse 108 H 11/29/20 20:01 Resp 22 H 11/29/20 19:56 BP 130/87 11/29/20 16:00 Pulse Ox 91 11/29/20 19:56 11/29/20 11/29/20 11/29/20 06:59 14:59 22:59 Intake Total 1370 / 1720 450 / 450 Output Total 400 / 2650 375 / 375 150 / 525 Balance 970 / -930 75 / 75 -150 / -75 Physical Exam Const: COMMON NORMALS: patient oriented x3 HENMT: COMMON NORMALS: normocephalic and atraumatic HEAD & SCALP: normocephalic and atraumatic Chest: COMMONS NORMALS: normal inspection of the chest and normal palpation of entire chest wall CHEST: Yes Symmetrical chest wall rise Resp: OTHER: Diminished air entry B/L Cardio: COMMON NORMALS: regular rate, regular rhythm, S1 normal heart sound present, S2 normal heart sound present, No gallops present (Cardio), No murmurs present (Cardio), No rub (Cardio) and Peripheral pulses 2+ throughout RATE: regular rate RHYTHM: regular rhythm HEART SOUNDS: S1 normal heart sound present and S2 normal heart sound present PERIPHERAL PULSES: Peripheral pulses 2+ throughout GI: COMMON NORMALS: Normal to inspection, nondistended, normoactive bowel sounds present, Soft to palpation, non-tender, No hepatosplenomegaly present and no masses AUSCULTATION: Yes normoactive bowel sounds PALPATION: Yes Soft to palpation and Yes No hepatosplenomegaly present RECTAL EXAM: Yes deferred Extremity: COMMON NORMALS: no clubbing, cyanosis or edema and no pedal edema Neuro: COMMON NORMALS: patient oriented x3 Data : 11/29/20 05:13 11/29/20 05:13 Micro: Microbiology 11/29/20 05:13 Blood Culture - Preliminary Blood SPECIMEN COLLECTED 11/29/20 05:17 Blood Culture - Preliminary Blood SPECIMEN COLLECTED A&P Assessment and plan (1) Acute respiratory failure with hypoxia: Remdisivir 200mg x 1 followed by 100mg iv daily dexamethasone 6mg IVP q24h duoneb and budesonide inhlalation flutter valve, spirometry Tessalon pears empric CTX and azithromycin D dimer negative supplemental 02 to keep sat >92% Status: Acute (2) Pneumonia due to COVID-19 virus: Status: Acute (3) Sepsis: Status: Acute Additional A&P Information Sepsis secondary to COVID-19 pneumonia Criteria met with fever, tachycardia, tachypnea, leukopenia, Currently on remdesivir and Decadron Encourage proning and incentive spirometry Regular diet Full code DVT prophylaxis we will add Lovenox Attestations Medical Necessity Statement*: Patient needs to be in hospital for the management of COVID PNA Coding Level of Care Code Acute Design/Animation Instructor for [facility] Fwd Diagnoses Acute respiratory failure with hypoxia J96.01 Pneumonia due to COVID-19 virus U07.1; J12.82 Sepsis A41.9
[2020-11-30] VITALS (14 sets, daily range): BP systolic 128–136; BP diastolic 66–83; PULSE 65–113; RESP 14–24; TEMP 36.4–36.9; O2SAT 90–98
[2020-11-30] MEDS: ipratropium-albuterol 3 mL Neb INHALATION ×4 (03:27→21:34)
[2020-11-30] MEDS: dexamethasone 4 mg/mL INJ 6 MG IVP (05:07)
[2020-11-30] MEDS: cefTRIAXone 1,000 MG in sodium chloride 0.9% (plus) 50 ML 100 MG IV (05:26)
[2020-11-30] MEDS: guaiFENesin 100 mg/5 mL UDC 10 mL 200 MG PO ×3 (05:33→22:27)
[2020-11-30] MEDS: benzonatate 100 mg Capsule PO ×4 (05:35→22:27)
[2020-11-30] MEDS: azithromycin 500 MG in sodium chloride 0.9% 250 ML 250 MG IV (06:02)
[2020-11-30 07:18] LABS: Basophils % 0.3 %; Hematocrit 47.8 % (42.0-52.0); Hemoglobin 15.7 g/dL (11.7-16.6); Lymphocytes % 10.4 %; Mean Corpuscular HGB Conc 32.8 g/dL (30.0-36.0); Mean Corpuscular Hemoglobin 28.7 pg (28.0-34.0); Mean Corpuscular Volume 87.4 fL (80-94); Mean Platelet Volume 9.3 fL (7.4-10.4); Monocytes # 0.7 10^3/uL (0.2-0.9); Monocytes % 6.8 %; Neutrophils # 7.64 10^3/uL (1.8-7.7); Neutrophils % 78.1 %; Nucleated Red Blood Cells % 0 %; Platelet Count 348 10^3/cmm (130-400); Red Blood Count 5.47 10^6/uL (4.1-5.3); White Blood Count 9.8 10^3/uL (4.0-10.0)
[2020-11-30 07:40] LABS: Alanine Aminotransferase 149 U/L (0-41); Albumin Level 3.3 g/dL (3.5-5.2); Alkaline Phosphatase 39 IU/L (40-130); Anion Gap 17.7 (5-19); Aspartate Amino Transferase 86 U/L (0-40); Blood Urea Nitrogen 11 mg/dL (6-20); C Reactive Protein 7.7 mg/L (0.0-4.9); Calcium 7.9 mg/dL (8.5-10.5); Carbon Dioxide 19 mmol/L (22-29); Chloride 108 mmol/L (98-107); Globulin 3.7 g/dL (1.3-4.6); Glomerular Filtration Rate 186.6 mL/min (90-130); Glucose 165 mg/dL (65-115); Osmolality Calculated 295 mOsm/kg (285-295); Potassium 3.7 mmol/L (3.5-5.1); Sodium 141 mmol/L (136-145); Total Bilirubin 0.4 mg/dL (0.15-1.2)
[2020-11-30 07:58] LABS: Ferritin 1277 ng/mL (30-400)
[2020-11-30 08:14] LABS: Erythrocyte Sedimentation Rate 34 mm/hr (0-10)
[2020-11-30] MEDS: pantoprazole DR 40 mg Tablet PO (09:52)
--- NOTE | 2020-11-30 09:52 | PC.CHAP ---
Pastoral Care Encounter/Spiritual Assessment Type of Contact [] Declined foam fabricator visit [] Patient/Family/Request visit [] Outpatient visit [] Follow-up visit [] Physician referral [] Code/Alert [x] Routine visit [] Staff referral [] Actively dying [] Patient sleeping [] Family support [] [] Out of room [] Palliative care [] [] Receiving care in room [] Pre-surgical visit [] Trauma [] Long length of stay [] ICU visit [x] Other: covid Relational/Emotional Strength [] Patient feels connected with others/family/visitors/staff [] Distress [] Loneliness/isolation [] Abandonment Spirituality of Patient [] Person of Lorelei [] Attends Anabaptism of their [place] [] Believes in Prayer [] Reads Bible or Mormon materials [] There are Spiritual issues to be addressed Chuck Wagon Cook Interventions [x] Prayer [] Active listening [] Non-anxious presence [] Spiritual/emotional support [] Crisis/trauma care [] Spiritual counseling [] Bereavement support [] Provided bereavement packet [] Provided Bible/devotional materials [] Provided toy/stuffed animal, coloring book to patient or family member [] Provided Communion [] Anointing/[place] [] Salvation [x] Completed spiritual assessment [] Other: Impact on Illness or Injury [] Angry [] Fearful [] Anxious [] Often cries [] Exhaustion [] Unable to work [] Unable to attend temple [] Unable to walk/stand [] Unable to read [] Unable to drive [] Unable to eat/drink [] Unable to sleep [] Unable to be with family [] Patient intubated [] Other: Summary Time spent with patient
[2020-11-30] MEDS: budesonide 0.5 mg/2 mL Neb INHALATION ×2 (10:25→21:34)
[2020-11-30] MEDS: enoxaparin 40 mg/0.4 mL Syringe SUBCUT (12:46)
[2020-11-30] MEDS: FUROsemide 10 mg/mL SDV 2mL 20 MG IVP (15:43)
[2020-11-30] MEDS: acetaminophen 325 mg Tablet 650 MG PO (15:57)
[2020-11-30] MEDS: remdesivir 100 MG in sodium chloride 0.9% (100 ml) 100 ML IV (17:02)
--- NOTE | 2020-11-30 20:16 | PM.PN ---
Subjective Subjective: Interval history: Patient was seen and examined this morning, shortness of breath is slightly improved, continues to have nonproductive cough, he still desaturates with minimal exertion.Supplemental oxygen requirement is slowly going down. Medications: Reviewed: Yes Vitals/I&O/Wt Last Vital Signs Temp 97.6 F 11/30/20 20:00 Pulse 97 11/30/20 17:32 Resp 17 11/30/20 17:32 BP 135/66 11/30/20 16:00 Pulse Ox 93 11/30/20 17:32 11/30/20 11/30/20 11/30/20 06:59 14:59 22:59 Intake Total 50 / 600 610 / 610 100 / 710 Output Total 625 / 1495 1400 / 1400 Balance -575 / -895 610 / 610 -1300 / -690 Physical Exam Const: COMMON NORMALS: patient oriented x3 HENMT: COMMON NORMALS: normocephalic and atraumatic HEAD & SCALP: normocephalic and atraumatic Chest: COMMONS NORMALS: normal inspection of the chest and normal palpation of entire chest wall CHEST: Yes Symmetrical chest wall rise Resp: OTHER: Diminished air entry B/L , minimal bilateral basal crepitus. Cardio: COMMON NORMALS: regular rate, regular rhythm, S1 normal heart sound present, S2 normal heart sound present, No gallops present (Cardio), No murmurs present (Cardio), No rub (Cardio) and Peripheral pulses 2+ throughout RATE: regular rate RHYTHM: regular rhythm HEART SOUNDS: S1 normal heart sound present and S2 normal heart sound present PERIPHERAL PULSES: Peripheral pulses 2+ throughout GI: COMMON NORMALS: Normal to inspection, nondistended, normoactive bowel sounds present, Soft to palpation, non-tender, No hepatosplenomegaly present and no masses AUSCULTATION: Yes normoactive bowel sounds PALPATION: Yes Soft to palpation and Yes No hepatosplenomegaly present RECTAL EXAM: Yes deferred Extremity: COMMON NORMALS: no clubbing, cyanosis or edema and no pedal edema Neuro: COMMON NORMALS: patient oriented x3 Data : 11/30/20 06:29 11/30/20 06:29 Micro: Microbiology 11/30/20 06:20 Enteric Pathogens (PCR) - Final Stool - Stool Aspirate 11/29/20 21:00 Legionella Urinary Antigen - Final Urine,Voided Bacterial Antigens - Final 11/29/20 05:17 Blood Culture - Preliminary Blood NEGATIVE TO DATE 11/29/20 05:13 Blood Culture - Preliminary Blood NEGATIVE TO DATE A&P Assessment and plan (1) Acute respiratory failure with hypoxia: Remdisivir 200mg x 1 followed by 100mg iv daily dexamethasone 6mg IVP q24h duoneb and budesonide inhlalation flutter valve, spirometry Tessalon pears empric CTX and azithromycin D dimer negative supplemental 02 to keep sat >92% Lasix as needed Status: Acute (2) Pneumonia due to COVID-19 virus: Status: Acute (3) Sepsis: Status: Acute Additional A&P Information Sepsis secondary to COVID-19 pneumonia Criteria met with fever, tachycardia, tachypnea, leukopenia, Currently on remdesivir and Decadron Encourage proning and incentive spirometry Regular diet Full code DVT prophylaxis we will add Lovenox Attestations Medical Necessity Statement*: Patient needs to be in the hospital for management of respiratory failure secondary to COVID pneumonia. Coding Level of Care Code Acute Computer Programmer for [facility] Diagnoses Acute respiratory failure with hypoxia J96.01 Pneumonia due to COVID-19 virus U07.1; J12.82 Sepsis A41.9
[2020-12-01] VITALS (16 sets, daily range): BP systolic 116–123; BP diastolic 60–90; PULSE 86–109; RESP 16–32; TEMP 36.4–36.9; O2SAT 90–96
[2020-12-01] MEDS: dexamethasone 4 mg/mL INJ 6 MG IVP (04:28)
[2020-12-01] MEDS: cefTRIAXone 1,000 MG in sodium chloride 0.9% (plus) 50 ML 100 MG IV (04:35)
[2020-12-01] MEDS: ipratropium-albuterol 3 mL Neb INHALATION ×3 (04:38→14:51)
--- NOTE | 2020-12-01 05:00 | XR_ITS ---
WS: [id number] Portable AP upright chest, 12/01/2020 Clinical Data: PNA Comparison: Portable chest, 11/27/2020. Findings: The patchy bilateral pulmonary opacities have diminished slightly. The heart size remains s cande. XR/XR chest 1V portable [id number] Impression: Slight improvement in patchy bilateral pulmonary opacities which may represent improving pneumonia.
[2020-12-01] MEDS: guaiFENesin 100 mg/5 mL UDC 10 mL 200 MG PO ×4 (05:09→22:41)
[2020-12-01] MEDS: azithromycin 500 MG in sodium chloride 0.9% 250 ML 250 MG IV (05:09)
[2020-12-01] MEDS: benzonatate 100 mg Capsule PO ×4 (05:09→22:40)
[2020-12-01] MEDS: LORazepam 2 mg/mL INJ 1 mL IVP (05:35)
--- NOTE | 2020-12-01 06:19 | PC.NURSE ---
this nurse entered the room, pt was sitting up in bed gasping trying to breathe. oxygen sats were 79%. pt was taking very rapid shallow breaths. this nurse assisted pt with placing high flow tubing and encouraged the pt to large slow deep breaths. pt was turned up to 13L High flow nasal brittany and recovered to 94%
[2020-12-01 07:42] LABS: Hematocrit 49.9 % (42.0-52.0); Hemoglobin 16.4 g/dL (11.7-16.6); Mean Corpuscular HGB Conc 32.9 g/dL (30.0-36.0); Mean Corpuscular Volume 88.2 fL (80-94); Mean Platelet Volume 9.1 fL (7.4-10.4); Platelet Count 384 10^3/cmm (130-400); Red Blood Count 5.66 10^6/uL (4.1-5.3); Red Cell Distribution Width 12.2 % (12.1-15.1); White Blood Count 9.4 10^3/uL (4.0-10.0)
[2020-12-01 08:16] LABS: Alanine Aminotransferase 133 U/L (0-41); Albumin Level 3.2 g/dL (3.5-5.2); Alkaline Phosphatase 41 IU/L (40-130); Anion Gap 14.8 (5-19); Aspartate Amino Transferase 41 U/L (0-40); Blood Urea Nitrogen 14 mg/dL (6-20); C Reactive Protein 3.5 mg/L (0.0-4.9); Carbon Dioxide 22 mmol/L (22-29); Chloride 107 mmol/L (98-107); Ferritin 840 ng/mL (30-400); Glomerular Filtration Rate 156.2 mL/min (90-130); Glucose 148 mg/dL (65-115); Osmolality Calculated 293 mOsm/kg (285-295); Potassium 3.8 mmol/L (3.5-5.1); Sodium 140 mmol/L (136-145); Total Bilirubin 0.4 mg/dL (0.15-1.2); Total Protein 7.2 g/dL (6.6-8.7)
[2020-12-01 08:24] LABS: D Dimer 0.48 ug/mIFEU (0-0.59)
[2020-12-01 08:25] LABS: Slide Review Slide Review Perform
[2020-12-01 08:28] LABS: Absolute Segmented Neutrophil 7.1 10/cmm (1.6-7.1); Band Neutrophils Absolute 0.2 10^3/cmm (0.0-1.2); Lymphocytes 12 %; Lymphocytes Absolute 1.3 10^3/cmm (1.2-3.4); Monocytes Absolute 0.6 10^3/cmm (0.1-0.6); Segmented Neutrophils 75 %; Total Cells Counted 100 (0-100)
[2020-12-01 08:29] LABS: Absolute Neutrophil 7.2 10^3/cmm (1.4-6.5); Eosinophils 0 %; Platelet Estimate Normal (Normal)
[2020-12-01] MEDS: budesonide 0.5 mg/2 mL Neb INHALATION (09:36)
[2020-12-01] MEDS: enoxaparin 40 mg/0.4 mL Syringe SUBCUT (09:45)
[2020-12-01] MEDS: pantoprazole DR 40 mg Tablet PO (09:45)
--- NOTE | 2020-12-01 10:02 | PC.CHAP ---
Pastoral Care Encounter/Spiritual Assessment Type of Contact [] Declined setter up visit [] Patient/Family/Request visit [] Outpatient visit [] Follow-up visit [] Physician referral [] Code/Alert [x] Routine visit [] Staff referral [] Actively dying [] Patient sleeping [] Family support [] [] Out of room [] Palliative care [] [] Receiving care in room [] Pre-surgical visit [] Trauma [] Long length of stay [] ICU visit [x] Other:covid Relational/Emotional Strength [] Patient feels connected with others/family/visitors/staff [] Distress [] Loneliness/isolation [] Abandonment Spirituality of Patient [] Person of Lorelei [] Attends Uatsdin of their [place] [] Believes in Prayer [] Reads Bible or Voodoo materials [] There are Spiritual issues to be addressed Ream Cutter Interventions [x] Prayer [] Active listening [] Non-anxious presence [] Spiritual/emotional support [] Crisis/trauma care [] Spiritual counseling [] Bereavement support [] Provided bereavement packet [] Provided Bible/devotional materials [] Provided toy/stuffed animal, coloring book to patient or family member [] Provided Communion [] Anointing/[place] [] Salvation [x] Completed spiritual assessment [] Other: Impact on Illness or Injury [] Angry [] Fearful [] Anxious [] Often cries [] Exhaustion [] Unable to work [] Unable to attend anabaptist [] Unable to walk/stand [] Unable to read [] Unable to drive [] Unable to eat/drink [] Unable to sleep [] Unable to be with family [] Patient intubated [] Other: Summary Time spent with patient
[2020-12-01 10:33] LABS: Erythrocyte Sedimentation Rate 28 mm/hr (0-10)
--- NOTE | 2020-12-01 12:26 | PM.PN ---
Subjective Subjective: Interval history: Patient was seen and examined this morning, shortness of breath is slightly improved, continues to have nonproductive cough, he still desaturates with minimal exertion.Supplemental oxygen requirement is slowly going down. Medications: Reviewed: Yes Vitals/I&O/Wt Last Vital Signs Temp 98.2 F 12/01/20 08:00 Pulse 104 H 12/01/20 09:43 Resp 17 12/01/20 09:37 BP 118/80 12/01/20 08:00 Pulse Ox 93 12/01/20 09:37 11/30/20 12/01/20 12/01/20 22:59 06:59 14:59 Intake Total 100 / 710 50 / 760 250 / 250 Output Total 1400 / 1400 50 / 1450 Balance -1300 / -690 0 / -690 250 / 250 Physical Exam Const: COMMON NORMALS: patient oriented x3 HENMT: COMMON NORMALS: normocephalic and atraumatic HEAD & SCALP: normocephalic and atraumatic Chest: COMMONS NORMALS: normal inspection of the chest and normal palpation of entire chest wall CHEST: Yes Symmetrical chest wall rise Resp: OTHER: Diminished air entry B/L , minimal bilateral basal crepitus. Cardio: COMMON NORMALS: regular rate, regular rhythm, S1 normal heart sound present, S2 normal heart sound present, No gallops present (Cardio), No murmurs present (Cardio), No rub (Cardio) and Peripheral pulses 2+ throughout RATE: regular rate RHYTHM: regular rhythm HEART SOUNDS: S1 normal heart sound present and S2 normal heart sound present PERIPHERAL PULSES: Peripheral pulses 2+ throughout GI: COMMON NORMALS: Normal to inspection, nondistended, normoactive bowel sounds present, Soft to palpation, non-tender, No hepatosplenomegaly present and no masses AUSCULTATION: Yes normoactive bowel sounds PALPATION: Yes Soft to palpation and Yes No hepatosplenomegaly present RECTAL EXAM: Yes deferred Extremity: COMMON NORMALS: no clubbing, cyanosis or edema and no pedal edema Neuro: COMMON NORMALS: patient oriented x3 Data : 12/01/20 06:47 12/01/20 06:47 Micro: Microbiology 11/30/20 06:20 Enteric Pathogens (PCR) - Final Stool - Stool Aspirate 11/29/20 21:00 Legionella Urinary Antigen - Final Urine,Voided Bacterial Antigens - Final A&P Assessment and plan (1) Acute respiratory failure with hypoxia: Remdisivir 200mg x 1 followed by 100mg iv daily dexamethasone 6mg IVP q24h duoneb and budesonide inhlalation flutter valve, spirometry Tessalon pears empric CTX and azithromycin D dimer negative supplemental 02 to keep sat >92% Lasix as needed Status: Acute (2) Pneumonia due to COVID-19 virus: Status: Acute (3) Sepsis: Status: Acute Additional A&P Information Sepsis secondary to COVID-19 pneumonia Criteria met with fever, tachycardia, tachypnea, leukopenia, Currently on remdesivir and Decadron Encourage proning and incentive spirometry Regular diet Full code DVT prophylaxis we will add Lovenox Attestations Medical Necessity Statement*: Patient needs to be in hospital for the management of covid pna Coding Level of Care Code Acute Assistant Guest Services Manager for [facility] Fwd Exam Detailed Diagnoses Acute respiratory failure with hypoxia J96.01 Pneumonia due to COVID-19 virus U07.1; J12.82 Sepsis A41.9
[2020-12-01] MEDS: remdesivir 100 MG in sodium chloride 0.9% (100 ml) 100 ML IV (17:12)
[2020-12-01] MEDS: acetaminophen 325 mg Tablet 650 MG PO (22:40)
[2020-12-02] VITALS (15 sets, daily range): BP systolic 106–117; BP diastolic 75–89; PULSE 85–114; RESP 16–30; TEMP 36.6–37.1; O2SAT 91–97
[2020-12-02] MEDS: budesonide 0.5 mg/2 mL Neb INHALATION ×3 (02:57→21:35)
[2020-12-02] MEDS: ipratropium-albuterol 3 mL Neb INHALATION ×5 (02:57→21:35)
[2020-12-02] MEDS: dexamethasone 4 mg/mL INJ 6 MG IVP (04:51)
[2020-12-02] MEDS: cefTRIAXone 1,000 MG in sodium chloride 0.9% (plus) 50 ML 100 MG IV (04:52)
[2020-12-02 07:27] LABS: Basophils % 0.1 %; Eosinophils % 0.4 %; Hematocrit 48.7 % (42.0-52.0); Hemoglobin 16.5 g/dL (11.7-16.6); Lymphocytes # 1.6 10^3/uL (0.8-4.8); Lymphocytes % 15.6 %; Mean Corpuscular HGB Conc 33.9 g/dL (30.0-36.0); Mean Corpuscular Hemoglobin 29.3 pg (28.0-34.0); Mean Corpuscular Volume 86.3 fL (80-94); Mean Platelet Volume 9.1 fL (7.4-10.4); Monocytes # 0.7 10^3/uL (0.2-0.9); Monocytes % 6.9 %; Neutrophils # 6.21 10^3/uL (1.8-7.7); Neutrophils % 62.1 %; Nucleated Red Blood Cells % 0.3 %; Platelet Count 369 10^3/cmm (130-400); Red Blood Count 5.64 10^6/uL (4.1-5.3); Red Cell Distribution Width 12.1 % (12.1-15.1)
[2020-12-02] MEDS: azithromycin 500 MG in sodium chloride 0.9% 250 ML 250 MG IV (07:28)
[2020-12-02] MEDS: benzonatate 100 mg Capsule PO ×2 (07:36→18:43)
[2020-12-02] MEDS: pantoprazole DR 40 mg Tablet PO (07:36)
[2020-12-02] MEDS: enoxaparin 40 mg/0.4 mL Syringe SUBCUT (07:36)
[2020-12-02] MEDS: guaiFENesin 100 mg/5 mL UDC 10 mL 200 MG PO ×2 (07:36→18:43)
[2020-12-02 07:50] LABS: D Dimer 0.46 ug/mIFEU (0-0.59)
[2020-12-02 08:15] LABS: Slide Review Slide Review Perform
[2020-12-02 08:30] LABS: Alanine Aminotransferase 99 U/L (0-41); Albumin Level 3.1 g/dL (3.5-5.2); Alkaline Phosphatase 43 IU/L (40-130); Anion Gap 15.8 (5-19); Aspartate Amino Transferase 27 U/L (0-40); Blood Urea Nitrogen 13 mg/dL (6-20); C Reactive Protein 1.4 mg/L (0.0-4.9); Calcium 7.7 mg/dL (8.5-10.5); Carbon Dioxide 19 mmol/L (22-29); Chloride 103 mmol/L (98-107); Ferritin 642 ng/mL (30-400); Globulin 3.6 g/dL (1.3-4.6); Glomerular Filtration Rate 186.6 mL/min (90-130); Glucose 116 mg/dL (65-115); Osmolality Calculated 279 mOsm/kg (285-295); Potassium 3.8 mmol/L (3.5-5.1); Sodium 134 mmol/L (136-145); Total Bilirubin 0.3 mg/dL (0.15-1.2); Total Protein 6.7 g/dL (6.6-8.7)
[2020-12-02 08:40] LABS: Erythrocyte Sedimentation Rate 18 mm/hr (0-10)
--- NOTE | 2020-12-02 09:56 | PC.CHAP ---
Pastoral Care Encounter/Spiritual Assessment Type of Contact [] Declined brass bobbin winder visit [] Patient/Family/Request visit [] Outpatient visit [] Follow-up visit [] Physician referral [] Code/Alert [x] Routine visit [] Staff referral [] Actively dying [] Patient sleeping [] Family support [] [] Out of room [] Palliative care [] [] Receiving care in room [] Pre-surgical visit [] Trauma [] Long length of stay [] ICU visit [x] Other: covid Relational/Emotional Strength [] Patient feels connected with others/family/visitors/staff [] Distress [] Loneliness/isolation [] Abandonment Spirituality of Patient [] Person of [place] [] Attends Zoroastrian of their [place] [] Believes in Prayer [] Reads Bible or Tenriism materials [] There are Spiritual issues to be addressed Cloth Shrinking Tester Interventions [x] Prayer [] Active listening [] Non-anxious presence [] Spiritual/emotional support [] Crisis/trauma care [] Spiritual counseling [] Bereavement support [] Provided bereavement packet [] Provided Bible/devotional materials [] Provided toy/stuffed animal, coloring book to patient or family member [] Provided Communion [] Anointing/[place] [] Salvation [x] Completed spiritual assessment [] Other: Impact on Illness or Injury [] Angry [] Fearful [] Anxious [] Often cries [] Exhaustion [] Unable to work [] Unable to attend gnosticism [] Unable to walk/stand [] Unable to read [] Unable to drive [] Unable to eat/drink [] Unable to sleep [] Unable to be with family [] Patient intubated [] Other: Summary Time spent with patient
--- NOTE | 2020-12-02 12:29 | PM.PN ---
Subjective Subjective: Interval history: Patient was seen and examined this morning, shortness of breath is slightly improved, continues to complain of cough is also having scant blood-tinged sputum now. Supplemental oxygen requirement is slowly coming down. Medications: Reviewed: Yes Vitals/I&O/Wt Last Vital Signs Temp 98.7 F 12/02/20 12:00 Pulse 104 H 12/02/20 12:00 Resp 18 12/02/20 12:00 BP 112/75 12/02/20 12:00 Pulse Ox 97 12/02/20 12:00 12/01/20 12/02/20 12/02/20 22:59 06:59 14:59 Intake Total 1060 / 1310 290 / 1600 350 / 350 Balance 1060 / 810 290 / 1100 350 / 350 Physical Exam Const: COMMON NORMALS: patient oriented x3 HENMT: COMMON NORMALS: normocephalic and atraumatic HEAD & SCALP: normocephalic and atraumatic Chest: COMMONS NORMALS: normal inspection of the chest and normal palpation of entire chest wall CHEST: Yes Symmetrical chest wall rise Resp: OTHER: Diminished air entry B/L , minimal bilateral basal crepitus. Cardio: COMMON NORMALS: regular rate, regular rhythm, S1 normal heart sound present, S2 normal heart sound present, No gallops present (Cardio), No murmurs present (Cardio), No rub (Cardio) and Peripheral pulses 2+ throughout RATE: regular rate RHYTHM: regular rhythm HEART SOUNDS: S1 normal heart sound present and S2 normal heart sound present PERIPHERAL PULSES: Peripheral pulses 2+ throughout GI: COMMON NORMALS: Normal to inspection, nondistended, normoactive bowel sounds present, Soft to palpation, non-tender, No hepatosplenomegaly present and no masses AUSCULTATION: Yes normoactive bowel sounds PALPATION: Yes Soft to palpation and Yes No hepatosplenomegaly present RECTAL EXAM: Yes deferred Extremity: COMMON NORMALS: no clubbing, cyanosis or edema and no pedal edema Neuro: COMMON NORMALS: patient oriented x3 Data : 12/02/20 06:10 12/02/20 06:10 A&P Assessment and plan (1) Acute respiratory failure with hypoxia: Remdisivir 200mg x 1 followed by 100mg iv daily dexamethasone 6mg IVP q24h duoneb and budesonide inhlalation flutter valve, spirometry Tessalon pears empric CTX and azithromycin D dimer negative supplemental 02 to keep sat >92% Lasix as needed Status: Acute (2) Pneumonia due to COVID-19 virus: Status: Acute (3) Sepsis: Status: Acute Additional A&P Information Sepsis secondary to COVID-19 pneumonia Criteria met with fever, tachycardia, tachypnea, leukopenia, Currently on remdesivir and Decadron Encourage proning and incentive spirometry Regular diet Full code DVT prophylaxis we will add Lovenox Attestations Medical Necessity Statement*: Patient needs to be in hospital for management of Covid pneumonia. Coding Level of Care Code Acute Banquet Coordinator for [facility] Fwd Diagnoses Acute respiratory failure with hypoxia J96.01 Pneumonia due to COVID-19 virus U07.1; J12.82 Sepsis A41.9
[2020-12-02] MEDS: acetaminophen 325 mg Tablet 650 MG PO (18:43)
[2020-12-03] VITALS (11 sets, daily range): BP systolic 115–119; BP diastolic 59–78; PULSE 78–112; RESP 16–28; TEMP 36.7–37.2; O2SAT 92–94
[2020-12-03] MEDS: ipratropium-albuterol 3 mL Neb INHALATION ×4 (03:02→21:55)
[2020-12-03] MEDS: dexamethasone 4 mg/mL INJ 6 MG IVP (05:11)
[2020-12-03] MEDS: cefTRIAXone 1,000 MG in sodium chloride 0.9% (plus) 50 ML 100 MG IV (05:12)
--- NOTE | 2020-12-03 06:00 | XRR_ITS ---
PROCEDURE INFORMATION: Exam: XR Chest Exam date and time: 12/03/2020 6:00 AM Age: 35 years old Clinical indication: Condition or disease; Lung condition and disease; Pneumonia; Patient HX: Covid follow up; Additional info: Pna TECHNIQUE: Imaging protocol: XR of the chest. Views: 1 view. COMPARISON: CR XR chest 1V portable [id number] 12/01/2020 6:16 AM FINDINGS: Lungs: Low lung volumes. Persistent bilateral airspace opacities. No large pleural effusion or pneumothorax. Pleural spaces: See Lungs finding. Heart/Mediastinum: Stable cardiomediastinal silhouette. Bones/joints: No acute osseous injury identified. XR/XR chest 1V portable [id number] IMPRESSION: Persistent bilateral airspace opacities.
[2020-12-03 06:28] LABS: Basophils % 0.2 %; Eosinophils # 0.1 10^3/uL (0.0-0.8); Eosinophils % 0.9 %; Hematocrit 51.9 % (42.0-52.0); Hemoglobin 17.6 g/dL (11.7-16.6); Lymphocytes # 2.3 10^3/uL (0.8-4.8); Lymphocytes % 19.5 %; Mean Corpuscular HGB Conc 33.9 g/dL (30.0-36.0); Mean Corpuscular Hemoglobin 28.9 pg (28.0-34.0); Mean Corpuscular Volume 85.4 fL (80-94); Monocytes # 0.9 10^3/uL (0.2-0.9); Monocytes % 7.6 %; Neutrophils # 6.51 10^3/uL (1.8-7.7); Neutrophils % 54.3 %; Nucleated Red Blood Cells % 0 %; Platelet Count 472 10^3/cmm (130-400); Positive C 1; Positive M 1; Red Blood Count 6.08 10^6/uL (4.1-5.3); Red Cell Distribution Width 12.1 % (12.1-15.1)
[2020-12-03] MEDS: azithromycin 500 MG in sodium chloride 0.9% 250 ML 250 MG IV (06:34)
[2020-12-03 06:47] LABS: D Dimer 0.61 ug/mIFEU (0-0.59)
[2020-12-03 07:09] LABS: Anion Gap 15.6 (5-19); Blood Urea Nitrogen 10 mg/dL (6-20); C Reactive Protein 2.9 mg/L (0.0-4.9); Calcium 8.1 mg/dL (8.5-10.5); Carbon Dioxide 20 mmol/L (22-29); Chloride 105 mmol/L (98-107); Glomerular Filtration Rate 186.6 mL/min (90-130); Glucose 88 mg/dL (65-115); Osmolality Calculated 282 mOsm/kg (285-295); Potassium 3.6 mmol/L (3.5-5.1); Sodium 137 mmol/L (136-145)
[2020-12-03 07:54] LABS: Erythrocyte Sedimentation Rate 16 mm/hr (0-10)
[2020-12-03 07:55] LABS: Ferritin 605 ng/mL (30-400)
[2020-12-03] MEDS: budesonide 0.5 mg/2 mL Neb INHALATION ×2 (08:41→21:55)
[2020-12-03] MEDS: pantoprazole DR 40 mg Tablet PO (10:39)
[2020-12-03] MEDS: enoxaparin 40 mg/0.4 mL Syringe SUBCUT (10:39)
--- NOTE | 2020-12-03 14:38 | PM.PN ---
Subjective Subjective: Interval history: Patient was seen and examined this morning, shortness of breath has improved a lot.Requiring minimum supplemental oxygen.Coughing has improved. Medications: Reviewed: Yes Vitals/I&O/Wt Last Vital Signs Temp 98.9 F 12/03/20 12:00 Pulse 112 H 12/03/20 14:32 Resp 28 H 12/03/20 14:32 BP 118/78 12/03/20 12:00 Pulse Ox 94 12/03/20 14:32 12/02/20 12/03/20 12/03/20 22:59 06:59 14:59 Intake Total 240 / 590 290 / 880 Output Total 200 / 1000 Balance 240 / -210 90 / -120 Physical Exam Const: COMMON NORMALS: patient oriented x3 HENMT: COMMON NORMALS: normocephalic and atraumatic HEAD & SCALP: normocephalic and atraumatic Chest: COMMONS NORMALS: normal inspection of the chest and normal palpation of entire chest wall CHEST: Yes Symmetrical chest wall rise Resp: OTHER: Diminished air entry B/L , minimal bilateral basal crepitus. Cardio: COMMON NORMALS: regular rate, regular rhythm, S1 normal heart sound present, S2 normal heart sound present, No gallops present (Cardio), No murmurs present (Cardio), No rub (Cardio) and Peripheral pulses 2+ throughout RATE: regular rate RHYTHM: regular rhythm HEART SOUNDS: S1 normal heart sound present and S2 normal heart sound present PERIPHERAL PULSES: Peripheral pulses 2+ throughout GI: COMMON NORMALS: Normal to inspection, nondistended, normoactive bowel sounds present, Soft to palpation, non-tender, No hepatosplenomegaly present and no masses AUSCULTATION: Yes normoactive bowel sounds PALPATION: Yes Soft to palpation and Yes No hepatosplenomegaly present RECTAL EXAM: Yes deferred Extremity: COMMON NORMALS: no clubbing, cyanosis or edema and no pedal edema Neuro: COMMON NORMALS: patient oriented x3 Data : 12/03/20 05:28 12/03/20 05:28 A&P Assessment and plan (1) Acute respiratory failure with hypoxia: Remdisivir 200mg x 1 followed by 100mg iv daily dexamethasone 6mg IVP q24h duoneb and budesonide inhlalation flutter valve, spirometry Tessalon pears empric CTX and azithromycin D dimer negative supplemental 02 to keep sat >92% Lasix as needed Status: Acute (2) Pneumonia due to COVID-19 virus: Status: Acute (3) Sepsis: Status: Acute Additional A&P Information Sepsis secondary to COVID-19 pneumonia Criteria met with fever, tachycardia, tachypnea, leukopenia, Currently on remdesivir and Decadron Encourage proning and incentive spirometry Regular diet Full code DVT prophylaxis we will add Lovenox Attestations Medical Necessity Statement*: Patient needs to be in hospital for the management of PNA. Coding Level of Care Code Acute Composition Board Press Operator for [facility] Fwd Diagnoses Acute respiratory failure with hypoxia J96.01 Pneumonia due to COVID-19 virus U07.1; J12.82 Sepsis A41.9
[2020-12-03] MEDS: benzonatate 100 mg Capsule PO ×2 (17:44→23:43)
[2020-12-03] MEDS: acetaminophen 325 mg Tablet 650 MG PO (17:44)
[2020-12-03] MEDS: guaiFENesin 100 mg/5 mL UDC 10 mL 200 MG PO (23:43)
[2020-12-04] VITALS (7 sets, daily range): BP systolic 106–109; BP diastolic 70–78; PULSE 84–105; RESP 22–28; TEMP 36.3–36.6; O2SAT 84–95
[2020-12-04] MEDS: dexamethasone 4 mg/mL INJ 6 MG IVP (04:45)
[2020-12-04] MEDS: cefTRIAXone 1,000 MG in sodium chloride 0.9% (plus) 50 ML 100 MG IV (05:26)
[2020-12-04] MEDS: azithromycin 500 MG in sodium chloride 0.9% 250 ML 250 MG IV (06:05)
[2020-12-04 07:58] LABS: Anion Gap 16.1 (5-19); Blood Urea Nitrogen 10 mg/dL (6-20); C Reactive Protein 3.3 mg/L (0.0-4.9); Calcium 7.9 mg/dL (8.5-10.5); Carbon Dioxide 19 mmol/L (22-29); Chloride 106 mmol/L (98-107); Ferritin 521 ng/mL (30-400); Glomerular Filtration Rate 186.6 mL/min (90-130); Glucose 167 mg/dL (65-115); Osmolality Calculated 287 mOsm/kg (285-295); Potassium 4.1 mmol/L (3.5-5.1); Sodium 137 mmol/L (136-145)
[2020-12-04 07:59] LABS: D Dimer 0.47 ug/mIFEU (0-0.59)
[2020-12-04 08:30] LABS: Erythrocyte Sedimentation Rate 9 mm/hr (0-10)
[2020-12-04] MEDS: ipratropium-albuterol 3 mL Neb INHALATION (09:56)
[2020-12-04] MEDS: budesonide 0.5 mg/2 mL Neb INHALATION (09:57)
[2020-12-04] MEDS: enoxaparin 40 mg/0.4 mL Syringe SUBCUT (10:21)
[2020-12-04] MEDS: pantoprazole DR 40 mg Tablet PO (10:21)
[2020-12-04] MEDS: benzonatate 100 mg Capsule PO (10:21)
--- NOTE | 2020-12-04 11:30 | P.DS_ITS ---
Discharge Providers Date of Admission: 11/27/20 22:37 Date of Discharge: December 04, 2020 Attending Provider at Admission: Felicita Franco MD Attending Provider at Discharge: Jameel Gutierres MD Diagnoses at Discharge Discharge Diagnosis (1) Acute respiratory failure with hypoxia: Status: Resolved (2) Pneumonia due to COVID-19 virus: Status: Acute (3) Sepsis: Status: Acute Reason for Visit Reason for Visit: Sob, Low 02, covid + Hospital Course Hospital Course 35 year old male with no significant PMH unvaccinated for COVID 19 p/w fever, chills, nausea, vomiting and diarrhea over the past 5 days. He tested positive for COVID 19 at [facility] 3 days ago. He was admitted for the management of acute hypoxic respiratory failure secondary to Covid pneumonia, was kept on Covid protocol (completed 5 days course remdesivir, was on I.V dexamethasone, supplemental oxygen, he was also on other respiratory support measures (incentive spirometry , flutter valve ), inflammatory markers were trended, was empirically on ceftriaxone and Arythromycin. CT angio chest was done during the hospital stay: Diffuse bilateral hazy ground infiltrates compatible with COVID 19 pneumonia.Proximal main pulmonary arteries are normal. No evidence of pulmonary embolus. X-ray chest were monitored. Blood cultures were negative, urine Legionella antigen was negative bacterial antigen panel was negative, enteric pathogen PCR was negative. Patient was saturating well on minimal supplemental oxygen at rest, he qualified for 5Ls oxygen on exertion. Patient responded well to above medical management is being discharged in stable condition to home. He will follow Dr. Lainez as an outpatient. Physical Exam Const: COMMON NORMALS: patient oriented x3 HENMT: COMMON NORMALS: normocephalic and atraumatic HEAD & SCALP: normocephalic and atraumatic Chest: COMMONS NORMALS: normal inspection of the chest and normal palpation of entire chest wall CHEST: Yes Symmetrical chest wall rise Resp: COMMON NORMALS: clear to auscultation bilaterally AUSCULTATION: clear to auscultation bilaterally Cardio: COMMON NORMALS: regular rate, regular rhythm, S1 normal heart sound present, S2 normal heart sound present, No gallops present (Cardio), No murmurs present (Cardio), No rub (Cardio) and Peripheral pulses 2+ throughout RATE: regular rate RHYTHM: regular rhythm HEART SOUNDS: S1 normal heart sound present and S2 normal heart sound present PERIPHERAL PULSES: Peripheral pulses 2+ throughout GI: COMMON NORMALS: Normal to inspection, nondistended, normoactive bowel sounds present, Soft to palpation, non-tender, No hepatosplenomegaly present and no masses AUSCULTATION: Yes normoactive bowel sounds PALPATION: Yes Soft to palpation and Yes No hepatosplenomegaly present RECTAL EXAM: Yes deferred Extremity: COMMON NORMALS: no clubbing, cyanosis or edema and no pedal edema Neuro: COMMON NORMALS: patient oriented x3 Discharge Data Data Completed and Pending: Completed Studies During Hospitalization Category Date Time Status CT angio chest PE protcl [id number] Rout ine Cat Scan 11/29/20 12:35 Completed XR abdomen 1V* 74 018 Routine Exams 11/28/20 04:13 Completed XR chest 1V kirby ble [id number] Routine Exams 12/01/20 05:00 Completed XR chest 1V kirby ble [id number] Routine Exams 12/03/20 06:00 Completed XR chest 1V kirby ble [id number] Stat Exams 11/27/20 18:01 Completed Pending at discharge Category Date Time Status Basic Metabolic P alexandrea AM LABS Lab 12/05/20 04:00 Ordered C Reactive Protei n AM LABS Lab 12/05/20 04:00 Ordered D Dimer AM LABS Lab 12/05/20 04:00 Ordered Erythrocyte Sedim entation Rate AM L ABS Lab 12/05/20 04:00 Ordered Ferritin AM LABS Lab 12/05/20 04:00 Ordered Labs from last 24 hours 12/04/20 12/04/20 12/04/20 06:58 06:58 06:58 ESR 9 D-Dimer 0.47 Sodium 137 Potassium 4.1 Chloride 106 Carbon Dioxide 19 L Anion Gap 16.1 BUN 10 Creatinine 0.6 L GFR Calculation 186.6 H Glucose 167 H Calculated Osmolal ity 287 Calcium 7.9 L Ferritin 521 H C-Reactive Protein 3.3 Vitals: Last Vital Signs Temp 97.7 F 12/04/20 07:28 Pulse 100 12/04/20 09:58 Resp 28 H 12/04/20 09:58 BP 109/70 12/04/20 07:28 Pulse Ox 86 L 12/04/20 11:20 Discharge Plan Discharge Patient Disposition: Home Condition: Stable Prescriptions: New dexamethasone 2 mg tablet 6 mg PO DAILY Qty: 7 RF: 0 ProAir HFA 90 mcg/actuation HFA aerosol inhaler 1 inh inhalation Q6H PRN (Reason: shortness of breath or wheezing) Qty: 6.7 RF: 0 Pulmicort Flexhaler 90 mcg/actuation aerosol powdr breath activated 1 inh inhalation BID Qty: 1 RF: 0 Adult Tussin DM 10-100 mg/5 mL syrup 10 ml PO Q8H PRN (Reason: cough) Qty: 1000 RF: 0 Advair Diskus 250-50 mcg/dose blister with device 1 inh inhalation BID Qty: 60 RF: 0 Tessalon Perles 100 mg capsule 100 mg PO TID Qty: 30 RF: 0 Advair Diskus 250-50 mcg/dose blister with device 1 inh inhalation BID Qty: 60 RF: 0 ProAir HFA 90 mcg/actuation HFA aerosol inhaler 1 inh inhalation Q6H PRN (Reason: shortness of breath or wheezing) Qty: 6.7 RF: 0 dexamethasone 6 mg tablet 6 mg PO DAILY Qty: 7 RF: 0 Robitussin Cough-Chest Harley DM 10-200 mg capsule 1 tab-cap PO Q6H PRN (Reason: cough) Qty: 30 RF: 0 Tessalon Perles 100 mg capsule 100 mg PO BID Qty: 14 RF: 0 Continued Tylenol Extra Strength 500 mg Tablet 500 - 1,000 mg PO PRN RF: 0 Discharge Orders: Discharge Order (Routine); Ordered 12/04/20 Ordered By: Jameel Gutierres Other Ambulatory Orders: DME: Oxygen (Order) Location: None Selected Ordered By: Jameel Gutierres Referrals: Aaron Beckford MD [Referring] - 12/08/20 2:00 pm (You will need to bring your 2020 taxes in order to qualify for their sliding scale. If you do not have taxes, bring a source of income ex: food stamps) Yanci Lainez MD [Physician] - 2 weeks Discharge Diet: Regular Discharge Activity: Increase activity as tolerated Patient Instructions: Benzonatate (By mouth), Albuterol (By breathing), Dexamethasone (By mouth), Viral Pneumonia (DC), Acute Respiratory Distress Syndrome (DC), Opioid Safety Discharge Attestations Time Spent in Discharge Care*: less than 30 min Specific Discharge Activities: educating patient, educating and/or supporting family/caregiver, discussing with pcp/other providers, discussing with rn case manager hospice/social workers/dc planners, documenting/other paperwork and evaluating patient/reviewing data Status at Discharge: Cognitive status at discharge: cognitively intact , Behavioral status at discharge: cooperative , Functional status at discharge: independent ambulation Overall status at discharge: patient is back to baseline Quality Metrics Clinical Quality Measures During this hospital stay, did patient experience: None Coding Level of Care Code Acute Chg FW DC note Exam Detailed Diagnoses Acute respiratory failure with hypoxia J96.01 Pneumonia due to COVID-19 virus U07.1; J12.82 Sepsis A41.9
--- NOTE | 2020-12-04 15:50 | PC.NURSE ---
PT HAS DONE WELL FOR ME TODAY. PT HAS NOT HAD ANY COMPLAINTS OF PAIN. PT O2 IS DOING OKAY FAR AMBULATING GOES. HOME O2 EVALUATION ORDERED FOR PT BEFORE DISCHARGE. O2 PERFORMED BY RT. PT REQUIRES OXYGEN. EDUCATION WAS GIVEN TO THE PT REGUARDING THIS. PTS IV WAS REMOVED. CATHETER TIP INTACT. PT TOLERATED WELL. DISCHARGE PAPERWORK WAS GIVEN TO PT. ALL QUESTIONS ANSWERED. ALL MEDICATIONS EXCEPT ONE WERE SENT TO [facility]. READY FOR CATTLE CARE WORKER. PT WAS SAFELY DISCHARGE BY THIS NURSE ALONG WITH THE HELP OF AN AID AND SECURITY.
--- NOTE | 2020-12-04 17:03 | PC.RESP ---
Dr Gutierres was informed of patient desating to 84% on 5 lpm o2 while walking in room, Dr was in room when RT retested pt of home o2 evaluation. Dr Gutierres stated this is fine.
--- NOTE | 2020-12-07 09:31 | PC.SOCIAL ---
follow up call made to patient. patient reports he is feeling much better. continuing to use O2 at 5L NC. tolerating well. picked up medications from pharmacy and is taking with understanding of instructions. Follow up visit with Dr. Lainez for December 20 at 1400, virtual made for patient.
== END 2020-12-04 15:10 | disposition home or self-care (01) | DRG 871 ==
LOC: ER 21:22 → MS 2A 23:40
PROVIDERS: Internal Medicine; Nurse Practitioner Family; Admitting Provider Student in an Organized Health Care Education/Training Program; Emergency Provider Emergency Medicine; Visit Provider Internal Medicine
DX: A41.9 Sepsis, unspecified organism (principal); U07.1 COVID-19; J12.82 Pneumonia due to coronavirus disease 2019; J96.01 Acute respiratory failure with hypoxia
CPT/HCPCS: 36415; 36416; 36600; 71045; 71275; 74018; 80048; 80053; 82550; 82728; 82803; 82962; 83605; 83615; 84145; 84484; 85007; 85025; 85378; 85610; 85651; 85730; 86140; 86403; 87040; 87449; 87506; 87806; 93005; 94640; 94664; 96361; 96365; 96372; 96375; 99285; J0456; J0696; J1100; J1650; J1940; J2060; J2270; J2405; J3535; J7030; J7050; J7626; Q9967

== ENCOUNTER 2020-12-31 23:33 | Emergency (ER) | payer SELFPAY ==
[2020-12-31 23:40] VITALS: BP 143/100; PULSE 81; RESP 16; TEMP 36.8; O2SAT 97; BMI 27.3
[2021-01-01 00:09] LABS: Bilirubin Urine Neg (Negative); Blood Urine Neg (Negative); Glucose Urine UA Norm (Normal); Ketones Urine Negative (Negative); Leukocyte Esterase Urine Negative (Negative); Nitrate Urine Negative (Negative); Protein Urine Neg (Negative); Specific Gravity, Urine 1.005 (1.005-1.030); Urine Appearance Clear (CLEAR); Urine Color Straw (Yellow); Urobilinogen Urine Norm (Negative); pH Urine 7 (5-7)
[2021-01-01 00:10] LABS: Add Urine Culture? No; Bacteria Urine TRACE /hpf; RBC Urine 0-4 /hpf (0-2); Squamous Epithelial Cell Urine 0-4 /hpf (0-5); WBC Urine 0-4 /hpf (0-5)
[2021-01-01 00:49] VITALS: RESP 16; TEMP 36.8; O2SAT 97
== END 2021-01-01 00:43 | disposition left against medical advice (07) ==
LOC: ER 23:40
PROVIDERS: Emergency Medicine; Emergency Provider Family Medicine
DX: Z53.21 Procedure and treatment not carried out due to patient leaving prior to being seen by health care provider (principal)
CPT/HCPCS: 81001

== ENCOUNTER 2021-01-07 16:05 | Emergency (ER) | payer SELFPAY ==
[2021-01-07 16:14] VITALS: BP 142/102; PULSE 88; RESP 20; TEMP 36.4; O2SAT 98; BMI 24.3
[2021-01-07 16:50] VITALS: BP 145/103; PULSE 81; RESP 18; O2SAT 97
[2021-01-07] MEDS: famotidine 20 mg/2 mL INJ IVP (17:17)
[2021-01-07] MEDS: sodium chloride 0.9% 1,000 ML 999 ML IV ×2 (17:17)
[2021-01-07] MEDS: ketorolac 30 mg/mL INJ IVP (17:17)
[2021-01-07 17:33] LABS: Basophils % 0.2 %; Eosinophils # 0.1 10^3/uL (0.0-0.8); Eosinophils % 0.6 %; Hemoglobin 15.1 g/dL (11.7-16.6); Lymphocytes # 1.3 10^3/uL (0.8-4.8); Lymphocytes % 15.6 %; Mean Corpuscular HGB Conc 34.3 g/dL (30.0-36.0); Mean Corpuscular Hemoglobin 29.2 pg (28.0-34.0); Mean Corpuscular Volume 84.9 fl (80-94); Mean Platelet Volume 9.5 fL (7.4-10.4); Monocytes # 0.8 10^3/uL (0.2-0.9); Monocytes % 10.1 %; Neutrophils % 72.3 %; Nucleated Red Blood Cells % 0 %; Platelet Count 280 10^3/cmm (130-400); Red Blood Count 5.18 10^6/uL (4.1-5.3); Red Cell Distribution Width 12.1 % (12.1-15.1)
--- NOTE | 2021-01-07 17:44 | ED_ITS ---
HPI - General Adult General: Chief complaint: Abdominal Pain Stated complaint: Pain in right abdominal, unable to urinate Time Seen by Provider: 01/07/21 16:53 History of Present Illness: HPI narrative: HPI: [35] yo patient w/ hx of renal colic presenting to the ED w/ R-sided flank pain x 1 week and now dysuria x 2 days. +N/-V since onset of symptoms and has not been able to tolerate PO. No prior abdominal surgeries. Denies fever/chill, hematuria/polyuria, diarrhea, melena/hematochezia/ or hematemesis. No associated chest pain, SOB, palpitations, exertional shortness of breath and chest pain, or pleuritic chest pain. In addition, patient denies any penile discharge. Onset: 1 week ago Duration: ongoing Location: home Severity: moderate Review of Systems Narrative: Constitutional: No fever, no chills. HEENT: No vision changes CV: No chest pain, no palpitations PULM: No productive cough, no dyspnea. GI: No abdominal pain, +N/-V/-D. +R-sided flank pain : +Dysuria, no hematuria, no penile discharge MSKEL: No muscle pain SKIN: No new rashes, no lesions. NEURO: No headache, no focal weakness. HEME: No visible bruises PSYCH: Normal mood PFSH ED PFSH: Medical History (Updated 01/07/21 @ 17:53 by Jono Davidson MD) Acute respiratory failure with hypoxia Pneumonia due to COVID-19 virus Sepsis Physical Exam Narrative: EXAM NARRATIVE: Head: Atraumatic Eyes: PERRL, conjunctiva without injection, eyes tracking ENT: Mucous membrane moist NECK: Supple without lymphadenopathy LUNGS: LCTAB CV: RRR ABDOMEN: Soft, +R CVA flank, no guarding or rebound tenderness, no McBurney?s point tenderness, no Rovsing/Obturator signs, no Valera's sign EXTREMITY: Normal ROM SKIN: No rash or erythema NEURO: Awake and alert. No focal weakness PSYCH: Cooperative mood and affect Course Vital Signs: Vital signs: Vital Signs Temperature 97.5 F L 01/07/21 16:14 Pulse Rate 68 01/07/21 18:59 Respiratory Rate 16 01/07/21 18:59 Blood Pressure 124/88 01/07/21 18:59 Pulse Oximetry 99 01/07/21 18:59 MDM - General Adult MDM Narrative: Medical decision making narrative: [35]yo patient w/ hx of renal colic presenting with R sided flank pain with symptoms consistent with prior presentations of renal colic. Given History and Exam I have lower suspicion for atypical appendicitis, genital torsion, acute cholecystitis, AAA, Aortic Dissection, Serious Bacterial Illness or other emergent intra abdominal pathology. Workup: CBC, BMP, UA, Interventions: IVF, Toradol IV, serial reassessment, PO challenge Findings: UA w/ RBCs. no signs of infection [7:30pm] On reassessment, the patient feels pain is improved symptomatic after fluids and medications. No complaints of pain currently. Exam improved on reassessment. Lab evaluation not consistent with acute infection. UA is clear. At this time, the patient has been able to tolerate PO and ambulate in the ER without issues. Disposition: Discharge. Strict return precautions for infected stone or PO intolerance/dehydration discussed. Given Urology follow up should the patient need expert opinion. Lab Data: Labs: Lab Results 01/07/21 01/07/21 01/07/21 Range/Units 17:15 17:15 17:15 WBC 8.0 (4.0-10.0) 10^3/ uL RBC 5.18 (4.1-5.3) 10^6/u L Hgb 15.1 (11.7-16.6) g/dL Hct 44.0 (42.0-52.0) % MCV 84.9 (80-94) fl MCH 29.2 (28.0-34.0) pg MCHC 34.3 (30.0-36.0) g/dL RDW 12.1 (12.1-15.1) % Plt Count 280 (130-400) 10^3/c mm MPV 9.5 (7.4-10.4) fL Neut % (Auto) 72.3 % Lymph % (Auto) 15.6 % [place] % (Auto) 10.1 % Eos % (Auto) 0.6 % Baso % (Auto) 0.2 % Neut # (Auto) 5.80 (1.8-7.7) 10^3/u L Lymph # (Auto) 1.3 (0.8-4.8) 10^3/u L [place] # (Auto) 0.8 (0.2-0.9) 10^3/u L Eos # (Auto) 0.1 (0.0-0.8) 10^3/u L Baso # (Auto) 0.0 (0.0-0.1) 10^3/u L Nucleated RBC % (a uto) 0 % Nucleated RBCs # 0.0 /100WBC Sodium 134 L (136-145) mmol/L Potassium 3.7 (3.5-5.1) mmol/L Chloride 101 (98-107) mmol/L Carbon Dioxide 23 (22-29) mmol/L Anion Gap 13.7 (5-19) BUN 15 (6-20) mg/dL Creatinine 1.0 (0.7-1.2) mg/dL GFR Calculation 103.5 (90-130) mL/min Glucose 84 (65-115) mg/dL Calculated Osmolal ity 278 L (285-295) mOsm/k g Calcium 8.4 L (8.5-10.5) mg/dL Total Bilirubin 0.3 (0.15-1.2) mg/dL AST 19 (0-40) U/L ALT 30 (0-41) U/L Alkaline Phosphata se 55 (40-130) IU/L Total Protein 7.0 (6.6-8.7) g/dL Albumin 3.9 (3.5-5.2) g/dL Globulin 3.1 (1.3-4.6) g/dL Lipase 27 (13-60) U/L Urine Color Yellow (Yellow) Urine Appearance Clear (CLEAR) Urine pH 5 (5-7) Ur Specific Gravit y 1.025 (1.005-1.030) Urine Protein 1+ H (Negative) Urine Glucose (UA) Norm (Normal) Urine Ketones Negative (Negative) Urine Blood 3+ H (Negative) Urine Nitrate Negative (Negative) Urine Bilirubin Neg (Negative) Urine Urobilinogen Norm (Negative) mg/dL Ur Leukocyte Kendra ase Negative (Negative) Urine RBC 25-40 H (0-2) /hpf Urine WBC Rare (0-5) /hpf Ur Squamous Epith Cells 0-4 H (0-5) /hpf Amorphous Sediment Not Reportable Urine Bacteria Trace (NONE) /hpf Discharge Plan Discharge Patient Disposition: Home Clinical Impression: Acute flank pain, Renal colic Condition: Stable Prescriptions: New acetaminophen 500 mg tablet 500 mg PO Q6H PRN (Reason: pain) 5 Days Qty: 20 RF: 0 No Action acetaminophen [Tylenol Extra Strength] 500 mg Tablet 500 - 1,000 mg PO PRN PRN (Reason: Pain) RF: 0 albuterol sulfate [ProAir HFA] 90 mcg/actuation HFA aerosol inhaler 1 inh inhalation Q6H PRN (Reason: shortness of breath or wheezing) Qty: 6.7 RF: 0 Discharge Orders: Discharge ED (Routine); Ordered 01/07/21 Ordered By: Jono Davidson Discharge Diet: Advance as tolerated Discharge Activity: Resume usual activity Patient Instructions: Abdominal Pain (ED) Activity Restrictions/Additional Instructions: You have been evaluated at [facility] Emergency Department today for a kidney stone. The stone will pass on its own and will be expelled in the urine. Please use the strainer as directed to strain your urine until your stone passes. Please read the information provided to you on discharge. Please follow up with your primary care physician as needed. If you do not have a primary doctor, you can call your insurance company to find one. If you do not have insurance, you can look for one on this paper list or go to the finance/registration department for more assistance. Return to the Emergency Department if you experience worsening pain, fever, painful urination, blood in urine, weakness, chest pain, difficulty breathing or any other concerning symptoms. Thank you for choosing [facility] for your care. 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
[2021-01-07 17:48] LABS: Add Urine Culture? Yes; Add Urine Microscopic? YES; Bacteria Urine TRACE /hpf; Bilirubin Urine Neg (Negative); Blood Urine 3+ (Negative); Glucose Urine UA Norm (Normal); Ketones Urine Negative (Negative); Leukocyte Esterase Urine Negative (Negative); Nitrate Urine Negative (Negative); Protein Urine 1+ (Negative); RBC Urine 25-40 /hpf (0-2); Specific Gravity, Urine 1.025 (1.005-1.030); Squamous Epithelial Cell Urine 0-4 /hpf (0-5); Urine Appearance Clear (CLEAR); Urine Color Yellow (Yellow); Urobilinogen Urine Norm (Negative); WBC Urine RARE /hpf (0-5); pH Urine 5 (5-7)
[2021-01-07 17:49] LABS: Alanine Aminotransferase 30 U/L (0-41); Albumin Level 3.9 g/dL (3.5-5.2); Alkaline Phosphatase 55 IU/L (40-130); Anion Gap 13.7 (5-19); Aspartate Amino Transferase 19 U/L (0-40); Blood Urea Nitrogen 15 mg/dL (6-20); Calcium 8.4 mg/dL (8.5-10.5); Carbon Dioxide 23 mmol/L (22-29); Chloride 101 mmol/L (98-107); Globulin 3.1 g/dL (1.3-4.6); Glomerular Filtration Rate 103.5 mL/min (90-130); Glucose 84 mg/dL (65-115); Lipase 27 U/L (13-60); Osmolality Calculated 278 mOsm/kg (285-295); Potassium 3.7 mmol/L (3.5-5.1); Sodium 134 mmol/L (136-145); Total Bilirubin 0.3 mg/dL (0.15-1.2)
[2021-01-07 18:59] VITALS: BP 124/88; PULSE 68; RESP 16; O2SAT 99
--- NOTE | 2021-01-10 10:04 | DCPLANNER ---
account services manager had message to schedule a follow up appointment for patient with Dr. Springer, spoke with Jignesh, gave clinic patients information. account services manager was told that patients information would be printed and reviewed. Clinic will call patient with appointment information.
--- NOTE | 2021-01-12 09:45 | DCPLANNER ---
Patient has a follow up appointment scheduled for , January 20, 2021 at 3:[address] Springer. Clinic will call patient with appointment information.
--- NOTE | 2021-01-12 09:47 | DCPLANNER ---
Patient has a follow up appointment scheduled for , January 20, 2021 at 3:[address] Springer. Clinic will call patient with appointment information.
--- NOTE | 2021-01-21 09:00 | DCPLANNER ---
Patient had a follow up appointment scheduled for 01.20.[address] Springer - patient did attend appointment.
== END 2021-01-07 19:01 | disposition home or self-care (01) ==
PROVIDERS: Emergency Provider Emergency Medicine
DX: N23 Unspecified renal colic (principal)
CPT/HCPCS: 80053; 81001; 83690; 85025; 87086; 96374; 96375; 99283; J1885; J3490; J7030

== ENCOUNTER → 2021-01-20 15:07 | Outpatient (BNVA) | payer SELFPAY | PROVIDERS: PCP Urology; Visit Provider Nurse Practitioner Family | DX: R31.0 Gross hematuria (principal); R10.9 Unspecified abdominal pain | CPT/HCPCS: 81003 ==

== ENCOUNTER → 2022-02-15 14:48 | Outpatient (BNVA) | payer SELFPAY | PROVIDERS: PCP Urology; Visit Provider Registered Nurse Neonatal Intensive Care | DX: N39.0 Urinary tract infection, site not specified (principal); R10.9 Unspecified abdominal pain | CPT/HCPCS: 81000; 87086 ==

== ENCOUNTER 2023-08-16 14:05 | Outpatient (CLI) | payer SELFPAY ==
[2023-08-16 14:51] LABS: PH Semen 7.5 (7.0-8.0)
[2023-08-16 14:52] LABS: Sperm Immotility 10 % (50-60); Sperm Non-Progressive Motility 5 % (5-10); Sperm Progressive Motility 85 % (31-34); Viscosity Semen Normal
[2023-08-16 14:53] LABS: Pathology Referral Yes; White Blood Count Semen 0-4 /hpf
== END 2023-08-16 14:06 | disposition home or self-care (01) ==
PROVIDERS: PCP Family Medicine; Visit Provider Family Medicine
DX: N46.11 Organic oligospermia (principal)
CPT/HCPCS: 80503; 89320